=== PATIENT | male | born 1980 | race Caucasian/White ===

== ENCOUNTER 2022-01-04 09:24 | Outpatient (CLI) | payer OTHER, SELFPAY ==
--- NOTE | 2022-01-14 15:05 | DI.RAD_ITS ---
Exam(s) XR STANDING ALIGNMENT EXAM: XR STANDING ALIGNMENT CLINICAL HISTORY: left knee pain. TECHNIQUE: 2D digital imaging was performed. Eight images were obtained. COMPARISON: No exams were available for comparison FINDINGS: The exam is suboptimal for evaluation of the distal tibia, fibula and ankle. BONES: No acute fracture is present. No bony destructive lesion is seen. There are marked degenerativ e changes seen in the left knee with joint space narrowing and periarticular spurring. The right kne e is well maintained. The right lower extremity measures 88 cm. The left lower extremity measures 8 7 cm. SOFT TISSUE: Normal. IMPRESSION: Marked degenerative changes of the left knee. DATA REPOSITORY: RADIATION DOSE DELIVERED:
== END 2022-01-04 09:25 | disposition home or self-care (01) ==
LOC: DIORS 09:24
PROVIDERS: PCP Neuromusculoskeletal Medicine & OMM; Referring Provider Neuromusculoskeletal Medicine & OMM; Visit Provider Physician Assistant
DX: M25.562 Pain in left knee
CPT/HCPCS: 77073

== ENCOUNTER 2022-01-22 01:30 | Outpatient (CLI) | payer OTHER, SELFPAY ==
[2022-01-22 10:00] LABS: HCT 46.6 % (40.0-50.0); HGB 16.7 g/dL (13.5-17.5); MCH 30.6 pg (27.0-33.0); MCHC 35.8 % (32.0-36.0); MCV 86 fL (80-95); MPV 11.4 fL (8.0-11.0); Platelet Count 186 10^3/uL (130-400); RBC 5.45 10^6/uL (4.36-5.78); RDW-SD 37.1 fL; WBC 7.45 10^3/uL (4.4-10.8)
[2022-01-22 10:28] LABS: Anion Gap 12.3 mmol/L (3-11); BUN 15 mg/dL (7-18); CO2 22.7 mmol/L (21.0-32.0); CREATININE 1.1 mg/dL (0.70-1.30); Calcium 9.8 mg/dL (8.5-10.1); Chloride 104 mmol/L (98-107); Glucose 97 mg/dL (74-106); Potassium 4.2 mmol/L (3.5-5.1); Sodium 139 mmol/L (136-145)
== END 2022-01-22 01:31 | disposition home or self-care (01) ==
LOC: LBO 01:30
PROVIDERS: PCP Neuromusculoskeletal Medicine & OMM; Visit Provider Student in an Organized Health Care Education/Training Program
DX: M25.562 Pain in left knee (principal); M17.12 Unilateral primary osteoarthritis, left knee; Z01.818 Encounter for other preprocedural examination; Z01.812 Encounter for preprocedural laboratory examination
CPT/HCPCS: 36415; 80048; 85027

== ENCOUNTER 2022-01-22 01:52 | Outpatient (CLI) | payer OTHER, SELFPAY ==
--- OUTSIDE RECORDS SUMMARY | 2022-01-22 01:54 | XMS_ITS ---
:1980 Author Care Team Providers Name Role Phone TARA LAMA DO Primary Care Provider [phone] Allergies Code Code System Name Reaction Severity Status Onset NKDA ? Medications Name Status Start Date Stop Date ? ? Bactrim DS 800 mg-160 mg tablet Completed ? 11/04/2021 Take 1 tablet every 12 hours by oral route for 7 days. cannabidiol (CBD) oral oil Completed ? 11/05 1000 mg BID cephalexin 500 mg tablet Completed ? 022 Take 1 tablet every 6 hours by oral route for 7 days. cyclobenzaprine 10 mg tablet Completed 08/13/2014 1 (one) Tablet: qhs - at bedtime prn Fish Oil Completed ? 11/05/2021 hydrocodone 5 mg-acetaminophen 300 mg tablet Completed 08/20/2014 1 (one) Tablet: qhs - at bedtime prn pain hydrocodone 5 mg-acetaminophen 325 mg tablet Completed 05/201703/09/2017 1 (one) Tablet: every four to six hours as needed hydrocodone 5 mg-acetaminophen 500 mg tablet Completed 01/201311/01/2012 1 Tablet: qhs - at bedtime ibuprofen 800 mg tablet Completed 09/02/2010 09/03/19 12 1 (one) Tablet: every 8 hours as needed indomethacin 50 mg capsule Active ? Not a vailable TAKE ONE CAPSULE BY MOUTH THREE TIMES A DAY NEEDED WITH FOOD FOR GOUT FOR 15 DAYS Keflex 500 mg capsule Completed 09/03/2016 06/30/2017 1 (one) Capsule Capsule: three times daily Klonopin 0.5 mg tablet Completed 10/08/2011 2 1 (one) Tablet: prn losartan 50 mg tablet Completed 09/03/2011 10/04/2012 1 Tablet: daily multivitamin Completed ? 11/05/2021 oxycodone 10 mg tablet Completed ? 2 Take 1 tablet every 4 hours by oral route as needed. paroxetine 20 mg tablet Completed 09/11/2010 09/11/19 11 1 (one) Tablet: daily prednisone 10 mg tablet Completed 11/10/2011 11/15/19 12 1 Tablet: See comments sertraline 100 mg tablet Completed ? 022 TAKE ONE TABLET BY MOUTH EVERY DAY sulindac 200 mg tablet Completed 10/04/2012 3 1 Tablet: bid - twice daily topiramate 50 mg tablet Completed ? 11/06/19 22 TAKE ONE TABLET BY MOUTH AT BEDTIME tramadol 50 mg tablet Active ? Not availa ble Take 1 tablet every 8 hours by oral route for 7 days. Vitamin D Active ? Not available 5000 IU Zoloft 50 mg tablet Completed 11/10/2011 11/10/2011 1 Tablet: daily Problems Name Status Onset Date Source ? Pain in Elbow Active 05/14/2019 ? Secondary Polycythemia Active 02/11/2020 ? Snoring Active 02/11/2020 ? Gout Active ? History Panic Disorder without Agoraphobia Active ? History Migraine Active ? History Hypertensive Disorder Active ? History Inguinal Hernia without Obstruction and without Active ? History Gangrene Inguinal Hernia with Obstruction but No Gangrene Active ? History Ventral Incisional Hernia of Anterior Abdominal Wall Active ? History without Obstruction and without Gangrene Backache Active ? History Fracture of Bone Active ? History Sprain Thumb, Metacarpophalangeal Joint Nonspecific Active ? History Laceration of Finger Active ? History Dietary Management Surveillance Active ? History Procedure by Method Unknown ? History Pain in Left Knee Active ? History SNOMED CT Concept Unknown ? History Procedures Date Name Performed by ? 08/29/2000 Appendectomy Information not avai lable ? Hernia Repair Information not avai lable Notes: 200605/14/2019 XR, Elbow, 3 or More View [facility] Radiology (Internal) [address], [place] [id number] (Work Place) 05/14/2019 XR, Elbow, 3 or More View [facility] Radiology (Internal) [address], [place] [id number] (Work Place) Results Lab Results Date Name Specimen Result Interpretation Description Value Range Status Address ? 02/11/2020 CBC W/ Auto BLD ? Wbc 5.2 10*3/uL 5.0-10.0 F inal [place] Diff 10*3/uL [facility] (Internal) : [address] ? ? BLD ? Rbc 5.42 10*6/uL 4.60-6.00 Final N orth 10*6/uL [facility] (Internal) : [address] , [place] ? ? BLD ? Hgb 16.8 g/dL 14.0-18.0 Final Nort h g/dL [facility] (Internal) : [address] ? ? BLD ? Hct 48.0 % 41.0-51.0 Final [facility] (Internal) : [address] ? ? BLD ? Mcv 88.6 fL 80.0-96.0 Final [facility] (Internal) : [address] [place] ? ? BLD ? Mch 31.0 pg 26.0-32.0 Final [facility] (Internal) : [address] ? ? BLD ? Mchc 35.0 g/dL 31.0-35.0 Final Nort h g/dL [facility] (Internal) : [address] ? ? BLD ? Rdw 11.9 % 11.5-14.5 Final [facility] (Internal) : [address] ? ? BLD ? Plt 182 10*3/uL 130-450 Final Nort h 10*3/uL [facility] (Internal) : [address] ? ? BLD ? Anc 3.23 10*3/uL ? Final Nort h [facility] (Internal) : [address] ? ? BLD ? Nlr 2.31 0.00-3.20 Final [facility] (Internal) : [address] ? ? BLD ? Neutro 61.9 % 40.0-75.0 Final [facility] (Internal) : [address] ? ? BLD ? Lymph 26.9 % 20.0-50.0 Final [facility] (Internal) : [address] ? ? BLD ? [place] 7.3 % 2.0-10.0 Final North [facility] (Internal) : [address] ? ? BLD ? Eos 2.9 % 1.0-6.0 % Final [facility] (Internal) : [address] ? ? BLD ? Baso 0.6 % 0.0-1.0 % Final [facility] (Internal) : [address] ? ? BLD ? Ig 0.4 % 0.0-0.9 % Final [facility] (Internal) : [address] 02/11/2020 Iron, Serum SERUM ? Iron 56 ug/dL 49-181 Final North ug/dL [facility] (Internal) : [address] 02/11/2020 CMP, Serum S ? g/r 89 mg/dL 74-106 Final North or Plasma mg/dL [facility] (Internal) : [address] ? ? S ? Bun 14 mg/dL 9-20 Final North mg/dL [facility] (Internal) : [address] ? ? S ? Crea 0.80 mg/dL 0.66-1.25 Final Nor th mg/dL [facility] (Internal) : [address] ? ? S ? Ca 9.5 mg/dL 8.4-10.2 Final [place] mg/dL [facility] (Internal) : [address] ? ? S ? Na 139 mmol/L 137-145 Final North mmol/L [facility] (Internal) : [address] ? ? S ? K 3.9 mmol/L 3.5-5.1 Final [place] mmol/L [facility] (Internal) : [address] ? ? S ? Cl 102 mmol/L 98-107 Final North mmol/L [facility] (Internal) : [address] ? ? S ? Tco2 23.0 mmol/L 22.0-30.0 Final No rth mmol/L [facility] (Internal) : [address] ? ? S ? Tp 7.8 g/dL 6.3-8.2 Final [place] g/dL [facility] (Internal) : [address] ? ? S ? Alb 4.5 g/dL 3.5-5.0 Final [place] g/dL [facility] L [facility] (Internal) : [address] ? ? S ? Tbil 0.7 mg/dL 0.2-1.3 Final [place] mg/dL [facility] (Internal) : [address] ? ? S ? Alp 55 U/L 50-136 Final [place] U/L [facility] (Internal) : [address] ? ? S ? Alt 22 U/L 21-72 U/L Final [place] (Sgpt) [facility] (Internal) : [address] ? ? S ? Ast 32 U/L 17-59 U/L Final [place] (Sgot) [facility] (Internal) : [address] [facility] [place] 02/11/2020 Uric Acid, S ? Urca 6.9 mg/dL 3.5-8.5 Final [place] Serum or mg/dL [facility] (Internal) : [address] [facility] [place] 02/11/2020 CRP, High S High Rcrp 0.89 mg/dL 0.10-0.30 Fin al [place] Sensitivity, mg/dL Coun try Serum or Hospital Lab Plasma (Internal) : [address] [facility] [place] 02/11/2020 Ferritin, S ? Ferr 201 NG/mL 18-464 Final [place] Serum or NG/mL [facility] (Internal) : [address] [facility] [place] 02/11/2020 ESR BLD ? Esr 3 mm/h 0-20 mm/h Final Nor th (Erythrocyte Coun try Sedimentatio Hosp ital Lab n Rate), (Interna l): Blood [address] [facility] [place] 02/11/2020 Venipuncture Blood ? Location Left ? ? P_nc Primary venous Antecubital [facility] [place]: [address], [place] ? ? Blood ? Needle 23g ? ? P_nc Prim yeny venous Butterfly [facility] [place]: [address], [place] ? ? Blood ? Number of 2 ? ? P_nc P rimary venous Attempts Care [place]: [address], [place] ? ? Blood ? Successfu Yes ? ? P_nc P rimary venous l Care [place]: [address], [place] ? ? Blood ? Dressing Pressure ? ? P_nc Primary venous Band-aid Care Applied [place]: [address], [place] ? ? Blood ? Initials rs/hj ? ? P_nc Pr imary venous Care [place]: [address], [place] Past Encounters 12/09/2021 Pain of Left Knee Joint; Overweight Tara Lama, DO: [address] [facility] [place] [address], Ph. 11/05/2021 Pain of Left Knee Joint; Overweight Tara Lama, DO: [address] [facility], [place] [address], Ph. 06/24/2021 JUMA GandaraC: [address] [place] [address], [facility] [address], [place] [address], Ph. 06/22/2021 Laceration of Hand Norma Will PA-C: [address] [place] [address], [facility] [address], [place] [address], Ph. Social History Tobacco Smoking Status Never Smoker Vaccine List Vaccine Type COVID-19 vaccine, vector-nr, rS-Ad26, PF , 0.5 mL ([facility] [employer]) 03/30/2021 Tdap 06/30/2017?0.5 mL Plan of Care Reminders Provider Appointments None recorded. ? ? Lab None recorded. ? ? Referral None recorded. ? ? Procedures None recorded. ? ? Surgeries None recorded. ? ? Imaging None recorded. ? ? Vitals 12/09/2021 01:20PM Follow Up 20 Height Weight BMI Blood Pressure 172.72 cm 137.89 kg 46.2 kg/m2 132/78 mm[Hg] 11/05/2021 10:40AM Any 20 Height Weight BMI Blood Pressure 172.72 cm 145.6 kg 48.8 kg/m2 148/74 mm[Hg] 06/22/2021 10:15AM Acute 15 Weight 135.49 kg 02/11/2020 11:20AM Acute 20 Height Weight BMI Blood Pressure 172.72 cm 131.54 kg 44.1 kg/m2 142/70 mm[Hg] 05/14/2019 12:40PM Acute 20 Height Weight BMI Blood Pressure 172.72 cm 138.35 kg 46.4 kg/m2 160/78 mm[Hg] 08/17/2016 Height Weight Blood Pressure 175.26 cm 133.81 kg 132/84 mm[Hg] 09/16/2014 Weight Blood Pressure 102.51 kg 124/76 mm[Hg] 08/13/2014 Weight Blood Pressure 102.51 kg 142/94 mm[Hg] 01/02/2013 Height Weight Blood Pressure 175.26 cm 83.91 kg 124/62 mm[Hg] 12/26/2012 Height Weight Blood Pressure 175.26 cm 83.91 kg 120/67 mm[Hg] 12/19/2012 Height Weight Blood Pressure 175.26 cm 83.91 kg 121/68 mm[Hg] 11/21/2012 Height Weight Blood Pressure 175.26 cm 83.91 kg 124/78 mm[Hg] 10/10/2012 Height Weight Blood Pressure 175.26 cm 83.91 kg 120/80 mm[Hg] 10/04/2012 Weight Blood Pressure 90.26 kg 130/80 mm[Hg] 05/08/2012 Height Weight Blood Pressure 172.72 cm 84.37 kg 118/60 mm[Hg] 01/07/2012 Weight Blood Pressure 92.53 kg 122/80 mm[Hg] 11/18/2011 Weight Blood Pressure 108.41 kg 116/60 mm[Hg] 11/10/2011 Height Weight Blood Pressure 172.72 cm 117.48 kg 120/64 mm[Hg] 11/03/2011 Height Weight Blood Pressure 172.72 cm 117.48 kg 118/60 mm[Hg] 10/08/2011 Height Weight Blood Pressure 172.72 cm 125.65 kg 130/68 mm[Hg] 09/22/2011 Height Weight Blood Pressure 172.72 cm 131.09 kg 140/80 mm[Hg] 09/03/2011 Height Weight Blood Pressure 172.72 cm 136.53 kg 160/90 mm[Hg] 09/11/2010 Blood Pressure 130/80 mm[Hg] 01/15/2009 Weight Blood Pressure 136.98 kg 130/80 mm[Hg] 06/01/2007 Weight Blood Pressure 141.07 kg 158/90 mm[Hg]
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
[2022-01-22 11:01] LABS: Source Nasal/Nares
[2022-01-22 14:42] LABS: COVID-19 PCR Negative (Negative)
== END 2022-01-22 01:53 | disposition home or self-care (01) ==
LOC: LBO 01:53
PROVIDERS: PCP Neuromusculoskeletal Medicine & OMM; Visit Provider Student in an Organized Health Care Education/Training Program
DX: Z20.822 Contact with and (suspected) exposure to COVID-19 (principal); Z01.818 Encounter for other preprocedural examination
CPT/HCPCS: 87635

== ENCOUNTER 2022-02-01 03:23 | Outpatient (CLI) | payer OTHER, SELFPAY ==
[2022-02-01 13:47] LABS: Source Nasal/Nares
[2022-02-01 21:01] LABS: COVID-19 PCR Negative (Negative)
== END 2022-02-01 03:24 | disposition home or self-care (01) ==
PROVIDERS: PCP Neuromusculoskeletal Medicine & OMM; Visit Provider Student in an Organized Health Care Education/Training Program
DX: Z20.822 Contact with and (suspected) exposure to COVID-19 (principal); Z01.818 Encounter for other preprocedural examination
CPT/HCPCS: 87635

== ENCOUNTER 2022-02-02 07:06 | Day surgery (SDC) | payer OTHER, SELFPAY ==
[2022-02-02] VITALS (10 sets, daily range): BP systolic 139–154; BP diastolic 79–98; PULSE 66–95; RESP 11–24; TEMP 36–37.1; O2SAT 96–100; BMI 45.3
--- NOTE | 2022-02-02 06:20 | W.ANESPRE ---
General Info Date of Service Date Performed: 02/02/22 Height: 5 ft 8 in Weight: 135.171 kg Body Mass Index (BMI): 45.3 Surgical Procedure: Operation Date: 02/02/22 09:55 Proposed Procedure Side Surgeon p Knee Total Arthroplasty Cementless CR Left Harrison Boss MD Meds Allergies and Home Medications Allergies Allergy/AdvReac Type Severity Reaction Status Date / Time No Known Allergies Allergy Verified 02/02/22 07:32 Home Medication Medication Instructions Recorded cholecalciferol (vitamin D3) 125 125 mcg PO DAILY 11/10/21 mcg (5,000 unit) capsule celecoxib 200 mg capsule (Celebrex) 200 mg PO BID PRN pain #60 caps 01/04/22 acetaminophen 500 mg capsule 1,000 mg PO Q8H PRN PRN #90 caps 02/02/22 acetaminophen 500 mg tablet 1,000 mg 02/02/22 aspirin 81 mg tablet,delayed 81 mg PO BID #60 tabs 02/02/22 release celecoxib 200 mg capsule (Celebrex) 200 mg PO BID #60 caps 02/02/22 gabapentin 300 mg capsule 300 mg PO QHS #14 caps 02/02/22 oxycodone 5 mg tablet 5 mg PO Q4H PRN #18 tabs 02/02/22 pantoprazole 40 mg tablet,delayed 40 mg PO DAILY #30 tabs 02/02/22 release (Protonix) Current Visit Medications: Current Medications Generic Name Dose Route Start Last Admin Trade Name Freq PRN Reason Stop Dose Admin Acetaminophen 1,000 mg 02/02/22 06:00 Acetaminophen 500 Mg Tab PO 02/02/22 16:00 PREOP CHOCO Celecoxib 400 mg 02/02/22 06:00 Celecoxib 200 Mg Cap PO 02/02/22 16:00 PREOP CHOCO Gabapentin 300 mg 02/02/22 06:00 Gabapentin 300 Mg Cap PO 02/02/22 16:00 PREOP CHOCO Tranexamic Acid 1,000 mg/ 60 mls @ 360 mls/hr 02/02/22 06:00 Sodium Chloride IVPB 02/02/22 16:00 PREOP CHOCO Tranexamic Acid 1,000 mg/ 60 mls @ 360 mls/hr 02/02/22 06:00 Sodium Chloride IVPB 02/02/22 16:00 DIRECTED CHOCO Ringer's Solution 1,000 mls @ 80 mls/hr 02/02/22 06:00 IV 02/25/22 23:59 INFUSION CHOCO Cefazolin Sodium 3 gm in 100 mls @ 200 mls/hr 02/02/22 06:00 Ancef Premix IVPB 02/02/22 16:00 PREOP CHOCO IV Miscellaneous Supplies 1 each 02/02/22 06:00 Iv Access IV 02/25/22 23:59 DIRECTED CHOCO Sodium Chloride 0 ml 02/02/22 06:00 Normal Saline Flush 10 Ml Syr IV 02/25/22 23:59 PRN PRN Sodium Chloride 0 ml 02/02/22 06:00 Normal Saline 10 Ml Vial IJ 02/25/22 23:59 DIRECTED PRN Sterile Water 0 ml 02/02/22 06:00 Water,Injection,Sterile 10 Ml Vial IJ 02/25/22 23:59 DIRECTED PRN PFSH Active Problems Active Problems: Problem Status Onset Code Gout M10.9 Hypertensive disorder I10 Left knee DJD M17.12 Medical History Medical History Panic disorder without agoraphobia Secondary polycythemia Pt. unsure of this Unilateral inguinal hernia, without obstruction or gangrene, not specified as recurrent Medical History Comments:: Pt. states he has anxiety provoked diarrhea. Surgical History Surgical History (Updated 02/02/22 @ 07:32 by Samantha Yeager RN) History of urinary tract surgery Hx of appendectomy Hx of inguinal hernia repair Hx of knee surgery x3 Tobacco Smoking/Tobacco Use Status: Former Tobacco Use Smokeless tobacco user: chewing tobacco Alcohol Alcohol Intake: current Alcohol intake frequency: a few times a week Alcohol type: hard liquor Substance Use Substance use: Daily Substance use type: marijuana Vital Signs and Lab Results Lab Results Blood Type / Crossmatch: No Data to Display Complete Blood Count: White Blood Count 7.45 10^3/uL (4.4-10.8) 01/22/22 09:24 Red Blood Count 5.45 10^6/uL (4.36-5.78) 01/22/22 09:24 Hemoglobin 16.7 g/dL (13.5-17.5) 01/22/22 09:24 Hematocrit 46.6 % (40.0-50.0) 01/22/22 09:24 Platelet Count 186 10^3/uL (130-400) 01/22/22 09:24 Complete Metabolic Panel: Sodium Level 139 mmol/L (136-145) 01/22/22 09:23 Potassium Level 4.2 mmol/L (3.5-5.1) 01/22/22 09:23 Chloride Level 104 mmol/L (98-107) 01/22/22 09:23 Carbon Dioxide Level 22.7 mmol/L (21.0-32.0) 01/22/22 09:23 Blood Urea Nitrogen 15 mg/dL (7-18) 01/22/22 09:23 Creatinine 1.1 mg/dL (0.70-1.30) 01/22/22 09:23 Estimated GFR/1.73 m2 >= 60.00 (mL/min/1.73m2) 01/22/22 09:23 Calcium Level 9.8 mg/dL (8.5-10.1) 01/22/22 09:23 Glucose Level 97 mg/dL (74-106) 01/22/22 09:23 Liver Function Panel: No Data to Display Coagulation Panel: No Data to Display Cardiac Panel: No Data to Display Arterial Blood Gas: No Data to Display Venous Blood Gas: No Data to Display Pancreas Panel: No Data to Display Thyroid Panel: No Data to Display Infectious Disease: Coronavirus (COVID-19)(PCR) Negative (Negative) 02/01/22 09:11 Coronavirus 2019 Source Nasal/Nares 02/01/22 09:11 Blood Cultures: No Data to Display Toxicology Panel: No Data to Display Anesthesia Assessment and Plan Anesthesia History Personal History: No History of Anesthesia Complications Family History: No Family History of Anesthesia Complications Exercise Tolerance Exercise Tolerance: Metabolic Equivalents>4 Cardiac & Pulmonary Exam Cardiac Exam: Normal S1/S2 Heart Sounds Pulmonary Exam: Clear Bilateral Breath Sounds Implantable Cardiac Device Does patient have a Pacemaker or an ICD?: No Airway Exam Known Difficult Airway: No Mallampati Class: 2 Mouth Opening: Normal (> 3cm) Thyromental Distance: Greater than 3 cm Neck Range of Motion: Full ROM Neck Circumference: Normal Teeth Condition: Normal Dentition ASA Classification ASA Score: ASA 3 Emergency Case?: No NPO Status NPO Status: NPO Clears >2 hours, Solids >8 hours Anesthesia Plan Resuscitation Status: Full Code Anesthesia Technique: Spinal Anesthesia Airway Planned: Natural Airway Pain Management: Surgeon and patient request nerve block Monitors Used: Standard Monitors Preoperative Comments:: 41 yo male for left knee arthroplasty. Sig PMHx: former tobacco, HTN (not on medication), occ EtOH, daily cannabis.
--- NOTE | 2022-02-02 07:45 | PDOC.DSDIS_ITS ---
Discharge Plan Disposition Patient Disposition: HOME Condition: Stable Discharge Details Reason For Visit: Left TKA Attending Provider: Harrison Boss Primary Care Provider: Sharif Cleveland [place] Meds and New Rx's Prescriptions: New acetaminophen 500 mg capsule 1,000 mg PO Q8H PRN PRNQty: 90 0RF aspirin 81 mg tablet,delayed release (DR/EC) 81 mg PO BID Qty: 60 0RF celecoxib [Celebrex] 200 mg capsule 200 mg PO BID Qty: 60 0RF pantoprazole [Protonix] 40 mg tablet,delayed release (DR/EC) 40 mg PO DAILY Qty: 30 0RF gabapentin 300 mg capsule 300 mg PO QHS Qty: 14 0RF oxycodone 5 mg tablet 5 mg PO Q4H PRNQty: 18 0RF ondansetron 4 mg tablet,disintegrating 4 mg PO Q6H PRNQty: 10 0RF Continued celecoxib [Celebrex] 200 mg capsule 200 mg PO BID PRN (Reason: pain) Qty: 60 1RF Rx Instructions: Take one tablet twice daily cholecalciferol (vitamin D3) 125 mcg (5,000 unit) capsule 125 mcg PO DAILY acetaminophen 500 mg Tablet 1,000 mg Discontinued tramadol 50 mg tablet 50 mg PO BID PRN indomethacin 50 mg capsule 50 mg PO TID PRN Rx Instructions: administer with food or milk Discharge Instructions Additional Instructions: Total Knee Discharge Instructions Activity: The most important activity is to walk. You should try to take short walks a few times a day. It is important that when resting you work on keeping the knee straight. Avoid putting a pillow behind the knee as this will encourage flexion. Work on range of motion exercises as provided by Physical Therapy. If you have the [employer] bike coming, this will be your primary tool for exercise after the knee replacement. You should use it and follow the directions for the knee. Utilize the other exercises sparingly based on your symptoms. - Start outpatient physical therapy within 2 weeks. - You should wear the EUGENE hose on both legs for 2 weeks. You may remove these at night. You may also use any compression sock in place of the EUGENE hose. - Utilize [employer] to review exercises, see videos on exercises and obtain basic information pertaining to your surgery and your recovery. Dressing: Remove the Jake wrap by 2 days after your surgery and put on the EUGENE stocking given to you from the hospital. Keep the surgical dressing (underneath the JAKE wrap) in place for at least one week. After the first week it may be removed and replaced with light gauze and tape or nothing. The wound and dressing may get wet after 3 days but avoid soaking the dressing or otherwise it will need to be changed. Many people prefer covering the dressing with cling wrap (saran wrap) to minimize it from getting soaked. If it gets wet, just pat dry. If it starts to peel off then it will need to be changed. Medications: - You should take Tylenol and anti-inflammatory Celebrex as your primary pain control medications. If the Celebrex is too expensive or not covered, please call the office for another alternative (Advil/Ibuprofen or Naproxen/Aleve) - You have been prescribed a stronger pain medication Oxycodone for breakthrough pain, take as needed as prescribed. - You have also been prescribed a stomach acid reduction agent Pantoprozole to help reduce stomach acid and reflux. - You have been prescribed Gabapentin to take at night for restlessness and nerve pain. - You will be taking Aspirin 81mg twice a day for DVT prevention unless instructed otherwise. - If you have constipation you should take Colace or Miralax (both [id number]). It takes most people 3-4 days to have a bowel movement. Follow-up: 2 weeks If you have any acute concerns or questions, please do not hesitate to contact the office at [phone]. You may contact Dr. Boss with any questions after hours through the hospital at [phone] or on his cell phone at [phone]. Stand Alone Forms: Anesthesia Discharge Inst., Mireya Kingsley ([facility]) Referrals: Harrison Boss MD [ [facility] STAFF PHYSICIAN] - Equipment/Supplies: Walker Activity:: Activity as Tolerated Remove Dressings/Wound Care:: Do Not Remove Shower/Bathe:: 72 hours Diet:: As Tolerated Discharge Orders Discharge Orders: Discharge Order (Routine); Ordered 02/02/22 Ordered By: Nighat Dick DS: Diagnosis Discharge Diagnosis (1) Left knee DJD: Status: Chronic
[2022-02-02] MEDS: Gabapentin 300 MG CAP PO (07:46)
[2022-02-02] MEDS: Acetaminophen 500 MG TAB 1000 MG PO (07:46)
[2022-02-02] MEDS: Celecoxib 200 MG CAP 400 MG PO (07:47)
[2022-02-02] MEDS: Lactated Ringers 1,000 ML 80 ML IV (07:59)
--- NOTE | 2022-02-02 09:30 | W.ANESNERVE ---
Nerve Block Single Injection Procedure Date and Time Date Performed: 02/02/22 Procedure Start: 08:10 Location Where Procedure Performed Procedure Location: Day Surgery Unit Reason Performed: Postoperative Analgesia Requesting Provider: Harrison Boss Timeout Performed Timeout Performed: Yes Monitoring Used ECG, Blood Pressure, SpO2 and See EMR for corresponding vital signs Sterility Sterility: Hand Hygiene, Surgical Cap, Surgical Mask, Sterile Gloves and Chlorhexidine Sedation Given During Procedure Sedation Given (Indicate Dose Given): Versed IV Dose:: 2mg Patient Mental Status Patient Mental Status: Awake Nerve Block 1st Nerve Block: Laterality: Left Block Type: Adductor Canal Needle / Catheter Used: 100mm SonoPlex II Local Anesthetic Bolus (Indicate Dose Given): Lidocaine used for local infiltration of skin, Injected in 3-5ml increments after negative blood aspiration and Bupivacaine 0.25% Dose:: 10mL Additives (Indicate Dose Given): None Ultrasound: Sterile probe cover and gel used Ultrasound Image Saved?: Yes Nerve Stimulator: Not Used Paresthesia: None Procedure Tolerated: No Complications Procedure Outcome: Successful Performed By: Jil Urena
[2022-02-02] MEDS: oxyCODONE 5 MG TAB PO (12:09)
--- NOTE | 2022-02-02 12:46 | IN_ITS ---
Date of service: 02/02/22 Time of Service: 12:46 PT Notes Visit Reasons: Left TKA Physical Therapy Day Surgery Initial Evaluation Date: 03/17/2022 Referring Doctor: DIONY Alfaro PT Orders: PT CONSULT: S/P Ortho surgery Precautions: WBAT on left LE with AD. Patient Profile/Admitting Diagnosis: Adelfo is a 41-year-old male with degenerative joint disease of the left knee and status post left total knee arthroplasty on postoperative day 0. PMHX: Medical History? Panic disorder without agoraphobia Secondary polycythemia Unilateral inguinal hernia, without obstruction or gangrene, not specified as recurrent Social History/Home Situation: Lives with in a private home with 5 steps to enter with rails on both sides. Independent with all aspects of renal prior to surgery. Equipment Owned/DME: [facility] Subjective: Agreeable to PT consult. Reports little pain in the left knee at 1-2/10. Amazed at how much he can move left knee with pain. Objective: General Observation: Jake wraps to left LE. Cryocuff to left knee. TEDS to right leg. Mental Status: Alert and oriented x 4 Pain: 1-2/10 in left knee ROM: Right Lower Extremity: Hip flexion WFL. Hip abduction WFL. Knee flexion WFL. Ankle dorsiflexion WFL. Ankle plantarflexion WFL. Left Lower Extremity: Hip flexion WFL. Hip abduction WFL. Knee flexion 30 degrees to 100 degrees. Knee extension -30 degrees. Ankle dorsiflexion WFL. Ankle plantarflexion WFL. Strength: Right Lower Extremity: Hip flexors 5/5. Hip abductors 5/5. Knee flexors 5/5. Knee extensors 5/5. Ankle dorsiflexors 5/5. Ankle plantarflexors 5/5. Left Lower Extremity:Hip flexors 5/5. Hip abductors 5/5. Knee flexors 3-/5. Knee extensors 3-/5. Ankle dorsiflexors 5/5. Ankle plantarflexors 5/5. Sensation: Intact as to pain and light pressure in bilateral lower extremities Bed Mobility/Transfers: Supine to sit standby assist Sit to stand standby assist Stand to sit standby assist Bed to chair standby assist Gait: Instructed patient on level surface ambulation of up to 150 feet using front- wheeled walker with step through gait pattern requiring standby assist only with no increased report in pain in the left knee. Stairs: Up and down 6 x 4 inch steps and 4 x 6 inch steps while holding onto bilateral rails with step to gait pattern requiring minimal to moderate verbal cues for safe and correct technique. Standby assist provided, Balance: Static Sitting: Normal Dynamic Sitting: Normal Static Standing: Fair Dynamic Standing: Fair Special Tests: Mobility Limitations Standardized Measure [facility] AM-PAC 6 clicks Basic Mobility Inpatient Short Form: Raw Score: 24 CMS Score: 0% deficit Informed Consent/Education: Patient instructed in purpose of PT consult. Education and training on initial set of exercises that can be done at home have been completed with patient and with reference to the [employer]. THERA EX: I Instruction and training on straight leg raise x 10, seated hip flexion x5 , LAQ x 5, ankle DF PF x 5, gluteal sets held for 5 seconds x 5 reps, and quadriceps sets held for 5 seconds x 5 reps. Assessment: Adelfo requires the use of a front wheeled walker for all mobility ADL performance to maximize independence and reduce fall risk. Patient presents with clinical signs and symptoms consistent with current/admitting diagnoses that have resulted to mobility limitations, gait instability, generalized weakness, and impairment of motor control as demonstrated by the following impairment level findings: 1. Decreased strength to left knee major muscle groups 2. Impaired standing balance 3. Limitation of joint range of motion in left knee Impairments are contributing to the following functional limitations: 1. Inability to safely ambulate without assistive device 2. Increase completion time for mobility ADL performance 3. Increased fall risk Patient is assessed as a [id number] moderate complexity based on the following: History: 41-year-old male with impairment level findings, functional limitations, and past medical history as indicated above Examination: Demonstrable impairment in strength, balance, and mobility level with underlying impairments and functional limitations as documented above Presentation: [employer] moderate complexity Goals: N/A. PT evaluation and 1-2 treatment sessions only for functional mobility training using recommended AD and for HEP instruction. Plan of Care/Treatment Plan: N/A. PT evaluation and 1-2 treatment session only for functional mobility training using recommended AD and for HEP instruction. DISCHARGE RECOMMENDATIONS: Home when medically cleared by orthopedic surgeon. Patient will benefit from outpatient physical therapy service in order to regain independent community ambulation and ADL performance without an assistive device. TREATMENT CODE/TIME: 40727 x 20 minutes, [id number] x 23 minutes beginning at 12:46 PM. Thank you for the opportunity to participate in the care of this patient. Loni Prado PT, DPT, CLT [facility] [place], [place]
--- NOTE | 2022-02-02 14:19 | ROE_ITS ---
Date of service: 02/02/22 Time of Service: 10:20 Operative Note Operative Note DATE OF PROCEDURE: 02/02/22 PRE-OP DIAGNOSIS: Left Knee Post-Traumatic Osteoarthritis POST-OP DIAGNOSIS: same PROCEDURE: Left Total Knee Replacement SURGEON: Harrison Boss CORE JAVA ENGINEER: Nighat Dick ANESTHESIA TYPE: Spinal Refer to Anesthesia Record ESTIMATED BLOOD LOSS: 500 PATHOLOGY: none sent TOURNIQUET TIME: 0 COMPLICATIONS: None Patient was transported to: PACU Patient's condition: stable Implants: 1. Depuy Attune Cementless Cruciate Retaining Femoral Component, Size 7 2. Depuy Attune Cementless Rotating Platform Tibial Component, Size 7 3. Depuy Attune 7x7 CR/RP Poly 4. Depuy Attune Patellar Component, Size 38 Indications: I have seen Adelfo in clinic for symptoms of knee arthritis, confirmed with radiographic findings. He has exhausted nonoperative methods and was having significant limitations in daily function and desired better function and less pain. I discussed the technical details of a knee replacement. I explained the risks of the procedure to include, but not limited to, bleeding, infection, pain, stiffness, fracture, damage to nerves and vessels, damage to muscles and tendons, loosening, need for repeat procedure, blood clot and cardiopulmonary demise. Despite these risks, Adelfo elected to proceed. Findings: There was significant signs of arthritis throughout the knee involving all 3 compartments. There were large osteophytes throughout. Procedure Description: Adelfo was greeted in the preoperative holding area where the correct side was identified and marked. The consent was reviewed with the patient and signed. The history and physical was updated. All questions were answered. Preoperative medications were administered: Acetaminophen 1000mg, Celebrex 400mg, and Gabapentin 300mg. An adductor canal block was then administered by the anesthesia team in the PACU. Adelfo was taken back to the operating room. A spinal anesthestic was attempted but unsuccessful so he was converted to a general anesthetic. The patient was placed into the supine position on the operating room table. A nonsterile tourniquet was placed high onto the leg but only used for cementing. Posts were placed for positioning during the procedure. All bony prominences were well padded. Prophylactic antibiotics in the form of Cefazolin were administered. 1g of Tranxemic Acid was given intravenously within 30 minutes of incision. The left leg was then prepped with Chloraprep and draped in a standard fashion with impervious stockinette. A second prep with Chloraprep was performed prior to application of Iodine impregnated skin protection. A timeout to confirm correct identity, side and site, procedure, allergies, anesthesia, and medical concerns was performed. With the knee in some flexion, a midline incision was made overlying the knee. Full thickness skin flaps were raised once the extensor mechanism was enc ountered. These were raised medially and laterally. Any bleeding was controlled with electrocautery. Once the extensor mechanism was fully exposed, a medial parapatellar arthrotomy was performed in a flexed position. All bleeding from the arthrotomy and the geniculate arteries was coagulated. A medial subperiosteal peel was performed with electrocautery to the midcoronal plane. Due to the significant varus deformity the entire medial tibial plateau was exposed. The fat pad was removed while keeping the patellar tendon protected. The anterior distal femur synovium was removed for later visualization. The ACL and PCL were resected and the anterior horn of the lateral meniscus was transected. The knee was then flexed with the patella everted. Large osteophytes from the tibia were removed. Large osteophytes from the femur were removed. Using a step drill, and based on preoperative templating, the femoral canal was entered. This was done with a step drill without any difficulty. The intramedullary distal femoral cut guide was inserted, set to a 5 degree valgus cut and 9mm cut thickness. The distal femoral cut guide was then held in position and pinned. With the soft tissues protected, the distal cut was performed. This was passed over a few times to ensure a planar cut. I then turned attention to the tibia. The extramedullary guide was placed onto the leg. The distal aspect was slid medial to adjust for position of center of ankle and stay in line with shaft of the tibia. Approximately 3-5 degrees of posterior slope was kept in the proximal cutting guide. The center of the guide was aligned with the PCL. The stylus was used to assess cut thickness. The medial side, most involved side, was set for a 2mm cut. This was then held in position and pinned into place with 2 additional pins and a cross pin for stability. The medial and lateral collateral ligaments were protected and the cut was performed. With this completed, it was assessed and noted to be of appropriate dimensions. The guide was removed. A spacer block was inserted and the knee was brought into extension. The 6mm spacer block provided full extension, without hyperextension and with stability of both the medial and lateral collateral ligaments was assessed. The pins from the femur and the tibia were then removed. The distal femur was then sized. The anterior stylus was placed onto the lateral ridge of the anterior femur. This indicated a size 7 femur. The external rotation of the guide was adjusted to 3 degrees to match the epicondylar axis, perpendicular to [place]?s line. The 4-in-1 cutting guide was the placed. The posterior medial femur cut was evaluated and appeared of good thickness. The spacer block was inserted underneath the cutting guide and stability was confirmed in 90 degrees of flexion. An maribeth wing was used to confirm appropriate position of the anterior cut to avoid notching. This cutting guide was ensured to be flush on the cut surface and then pinned into place with headed pins. While protecting the soft tissues, quad tendon, and collateral ligaments, the anterior and posterior cuts were performed with a saw. The central two pins were removed and the posterior and anterior chamfers were cut next. The notch-cutting guide was placed. This was pinned to lateralize the femoral component as much as possible while keeping it flush on the cut surface. This was then pinned into position. A reciprocating saw was used to make the notch cut. A rasp smoothed the cut surfaces. The medial and lateral menisci were removed. A trial femoral component was then inserted, impacted down to the cut surfaces, and the lug holes were drilled. A provisional trial tibial component was placed and the knee was brought through range of motion. The polyethylene was trialed until there was good flexion and extension with excellent stability to the medial and lateral collaterals. The patella was tracking without thumbs. A size 7mm polyethylene component provided the best range of motion and stability with less than 2mm gapping with medial and lateral stress and full extension without significant hyperextension. The tibial cut surface was fully exposed. The tibia was then sized as a 7. The tibia had been previously marked during trialing to correspond to the center of the tibial component to help with rotation. The trial was aligned to this dwayne, approximately rotated to the medial 1/3rd of the tibial tubercle. The trial was pinned into place. The tibia was prepared with a reamer and a keel punch and lug holes. The knee was then brought into extension and the patella was measured as 29mm. Using the patellar clamp and cut guide, this was resected to a flat surface with at least 13mm of thickness remaining. The size 38 patella fit the best. This was oriented and then clamped into position. The lugs were drilled. The trial components were removed. The final components were opened on the back table. The periosteal and capsular tissues, especially posteriorly, around the knee were then systematically injected with a periarticular cocktail consisting of 246mg of Ropivacaine, 0.5mg of Epinephrine, 0.08mg of Clonidine, and 30mg of Ketorolac, diluted to 100cc. On the back table, with the implants opened, the cement was mixed. One batch of high viscosity cement was prepared with vacuum assistance. After the cement was ready a small amount was placed on the cut surface of the patella and the patellar button was clamped into position and held. While the cement was hardening, the cementless knee components were placed. Starting with the tibial component, the tibia was subluxed anteriorly and the lug holes of the component were lined up. The tibia was then impacted with an impactor and mallet until the tibial component was in contact with the tibia. The final polyethylene component was inserted. Then, the femoral component was inserted. The lug holes were aligned and the component was impacted into position. The knee was irrigated with Surgiphor Betadine solution. This was allowed to sit in the knee for 3 minutes and then it was irrigated out with saline. After the cement had finally cured, approximately 15min, the clamp was removed from the patella and the knee was taken through range of motion. The patella was tracking with a no-thumbs technique. The capsule was then reapproximated with a No. 1 Vicryl at multiple locations. The capsule was finally closed with a No. 2 Stratafix, barbed suture. The second dosing of 1g TXA was started. Deep tissues were then reapproximated with 0 Vicryl and 2-0 Vicryl. The skin was closed with a running 3-0 Monocryl in a subcuticular fashion. This was reinforced with skin glue. A Mepilex silver dressing was applied along with a itrf-be-edwur MELISSA wrap. A CryoCuff was applied. Adelfo was transferred to the hospital bed without difficulty an suffering no apparent complication. Adelfo has a good prognosis. Physical therapy will start today and without restrictions, weight-bearing as tolerated. Aspirin 81mg BID will be used for DVT prophylaxis.
--- NOTE | 2022-02-03 07:58 | W.ANESPOSTOP ---
Postoperative Evaluation Date, Time and Location Date Performed: 02/02/22 Time Performed: 11:30 Patient Location: Day Surgery Unit Vital Signs Most Recent Imported Vital Signs: Most Recent Vital Signs Temp Pulse Resp BP Pulse Ox 36.6 C 74 16 148/94 H 100 02/02/22 12:16 02/02/22 12:16 02/02/22 12:16 02/02/22 12:16 02/02/22 12:16 Pain Score Most Recent Pain Score: Most Recent Pain Score Pain Level 6 02/02/22 12:16 Assessment Mental Status: Awake (Alert & Oriented to Patient Baseline) Airway and Respiratory Function: Patent airway with normal (patient baseline) respiratory exam Cardiovascular Function: Hemodynamically Stable Hydration Status: Adequately Hydrated Nausea & Vomiting: No Nausea or Vomiting Pain: Pain is tolerable per patient Peripheral Nerve Block: Regional nerve block not resolved at time of post operative discharge
== END 2022-02-02 13:45 | disposition home or self-care (01) ==
PROVIDERS: PCP Neuromusculoskeletal Medicine & OMM; Visit Provider Student in an Organized Health Care Education/Training Program
PROC: (CPT 27447; principal; 2022-02-02 09:45)
DX: M17.32 Unilateral post-traumatic osteoarthritis, left knee (principal); F41.0 Panic disorder [episodic paroxysmal anxiety]; I10 Essential (primary) hypertension; M10.9 Gout, unspecified
CPT/HCPCS: 27447; 76942; 97162; 97530; J1100; J2250; J2405; J2704

== ENCOUNTER 2022-02-15 13:04 | Outpatient (CLI) | payer OTHER, SELFPAY ==
--- NOTE | 2022-02-15 12:30 | DI.RAD_ITS ---
Exam(s) XR KNEE LT 1V XR STANDING ALIGNMENT EXAM: XR STANDING ALIGNMENT and XR knee LT 1 V CLINICAL HISTORY: 1ST POST OP L TKA. TECHNIQUE: 2D digital imaging was performed. Five images were obtained. COMPARISON: CR ORTHO KNEE LEFT 4+VIEWS from 10/10/2012 CR XR STANDING ALIGNMENT from 01/14/2022 FINDINGS: BONES: No acute fracture is present. No bony destructive lesion is seen. The patient is now status po st left total knee replacement. The orthopedic hardware appears in good position. The hips are well maintained. The right knee is unremarkable. The ankles are well maintained. The right lower extre mity measures 93.5 cm. The left lower extremity measures 93 cm. SOFT TISSUE: Normal. IMPRESSION: Stable left TKR. DATA REPOSITORY: RADIATION DOSE DELIVERED:
== END 2022-02-15 13:05 | disposition home or self-care (01) ==
LOC: DIORS 13:04
PROVIDERS: PCP Neuromusculoskeletal Medicine & OMM; Referring Provider Neuromusculoskeletal Medicine & OMM; Visit Provider Student in an Organized Health Care Education/Training Program
DX: Z96.652 Presence of left artificial knee joint (principal); Z47.1 Aftercare following joint replacement surgery; M21.70 Unequal limb length (acquired), unspecified site
CPT/HCPCS: 73560; 77073

== ENCOUNTER 2025-03-26 15:48 | Outpatient (REF) | payer OTHER, SELFPAY | END 2025-03-26 15:49 | disposition home or self-care (01) | LOC: LBN 15:48 | PROVIDERS: PCP Specialist/Technologist Athletic Trainer; Visit Provider Podiatrist | DX: M10.9 Gout, unspecified (principal) | CPT/HCPCS: 87070; 87075; 87205 ==

== ENCOUNTER 2025-03-26 16:41 | Observation (INO) | payer OTHER, SELFPAY ==
--- NOTE | 2025-03-26 10:19 | DI.RAD_ITS ---
Exam(s) XR FOOT LT COMPLETE EXAM: XR FOOT LT COMPLETE CLINICAL HISTORY: gout. TECHNIQUE: 2D digital imaging was performed. Three views. COMPARISON: No exams were available for comparison FINDINGS: BONES: No acute fracture is present. Lucencies at the base of the distal phalanx and distal aspect of the proximal phalanx. The findings could indicate osteomyelitis. JOINTS: No dislocation present. Widening of the interphalangeal joint of the great toe. SOFT TISSUE: Marked soft tissue swelling of the great toe, greatest around the interphalangeal joint. No foreign body or abnormal gas collection. IMPRESSION: Lucencies at the proximal and distal phalanges which could indicate osteomyelitis. DATA REPOSITORY: RADIATION DOSE DELIVERED:
[2025-03-26 16:43] VITALS: BP 159/105; PULSE 82; RESP 16; TEMP 37.1; O2SAT 99
--- NOTE | 2025-03-26 16:45 | RT.EKG_ITS ---
APPROVED REPORT Exam: Resting ECG Reason for Exam: OR [place] Patient Location: E HR:80 bpm ECG Measurements Heart Rate 80 AXIS NC 164 P 24 QRSd 110 QRS -8 QT 377 T 43 QTc 436 Conclusion Sinus rhythm...normal P axis, V-rate 60- 99 Sinus Rhythm. No prior. WD
--- NOTE | 2025-03-26 17:35 | W.ED.GENAD ---
Discharge Plan Disposition Patient Disposition: Admit to [facility] Condition: Stable Discharge Details Clinical Impression: Cellulitis, Gout Primary Care Provider: Francisco Linda ED Provider: Arelis Posada Home Meds and New Rx's Prescriptions: No Action sertraline 100 mg tablet 100 mg PO DAILY topiramate [Topamax] 50 mg tablet 50 mg PO DAILY cholecalciferol (vitamin D3) 125 mcg (5,000 unit) capsule 125 mcg PO DAILY acetaminophen 500 mg Tablet 1,000 mg acetaminophen 500 mg capsule 1,000 mg PO Q8H PRN PRNQty: 90 0RF ondansetron 4 mg tablet,disintegrating 4 mg PO Q6H PRNQty: 10 0RF escitalopram oxalate 5 mg tablet 5 mg PO PRN PRN Patient Comments: TAKE ONE TABLET BY MOUTH EVERY DAY NEEDED FOR ANXIETY colchicine 0.6 mg tablet 0.6 mg PO DAILY Patient Comments: TAKE ONE TABLET BY MOUTH EVERY DAY UNTIL GOUT FLARE IS IMPROVED allopurinol 300 mg tablet 300 mg PO DAILY Patient Comments: TAKE ONE TABLET BY MOUTH EVERY DAY HPI General Date/Time Provider Initiated Documentation: 03/26/25 16:55. HPI Narrative: 44-year-old male with history of hypertension and longstanding history of gout presents for evaluation of left foot cellulitis. Patient has been treated for gout flare with allopurinol and colchicine over the last 2 weeks. He has had 2 I&D's. Podiatry attempted a I&D in the office today however it was not successful. They sent patient to the emergency department for further evaluation and admission for I&D in OR tomorrow. Patient did take antibiotics initially however did not have any improvement. He is not sure which antibiotic he took at that time. He denies any fevers or chills. He does have significant erythema and swelling to the area. Wound cultures were obtained at podiatry office today. Denies any history of cellulitis or MRSA. He does have significant pain in his foot. Related Data Home Medications ?Medication ?Instructions ?Recorded ?Confirmed cholecalciferol (vitamin D3) 125 125 mcg PO DAILY 11/10/21 03/26/25 mcg (5,000 unit) capsule acetaminophen 500 mg capsule 1,000 mg (2 x 500 mg) PO Q8H PRN 02/02/22 03/26/25 PRN #90 caps acetaminophen 500 mg tablet 1,000 mg 02/02/22 03/26/25 ondansetron 4 mg disintegrating 4 mg PO Q6H PRN #10 tabs 02/02/22 03/26/25 tablet topiramate 50 mg tablet (Topamax) 50 mg PO DAILY 02/15/22 03/26/25 sertraline 100 mg tablet 100 mg PO DAILY 03/15/22 03/26/25 allopurinol 300 mg tablet 300 mg PO DAILY 03/26/25 03/26/25 colchicine 0.6 mg tablet 0.6 mg PO DAILY 03/26/25 03/26/25 escitalopram oxalate 5 mg tablet 5 mg PO PRN PRN 03/26/25 03/26/25 Previous Rx's ?Medication ?Instructions ?Recorded acetaminophen 500 mg capsule 1,000 mg (2 x 500 mg) PO Q8H PRN 02/02/22 PRN #90 caps ondansetron 4 mg disintegrating 4 mg PO Q6H PRN #10 tabs 02/02/22 tablet Allergies Allergy/AdvReac Type Severity Reaction Status Date / Time No Known Allergies Allergy Verified 03/26/25 16:49 General Stated Complaint: Cellulitis FRANCISCA: 3 Review of Systems Narrative: Remainder of review of systems otherwise negative except for as noted in the HPI x 10. Exam Narrative Exam Narrative: General: non-toxic, no respiratory distress, comfortable HEENT: normocephalic, atraumatic, lids and lashes normal, PERRL, EOMI, anicteric sclera, no conjunctival injection, moist oral mucosa Card: regular rate and rhythm, S1S2, no murmurs, rubs, or gallops Lungs: good air entry, clear to auscultation bilaterally. no wheezes, rales, rhonchi, or retractions Abd: soft, non-tender, non-distended, normal bowel sounds, no rebound or guarding, no peritoneal signs Musculoskeletal: Dressing in place to left foot, no erythema, warmth, or swelling in lower leg, otherwise full range of motion of arms and legs, no tenderness to palpation. no clubbing, cyanosis, or edema Neurologic: appropriate for age, strength normal Psych: alert and oriented Skin: As above, otherwise no petechiae, no lesions, warm and dry Course Vital Signs Vital signs: Vital Signs Temperature 37.1 C 03/26/25 16:43 Pulse 82 03/26/25 16:43 Respiratory Rate 16 03/26/25 16:43 Blood Pressure 159/105 H 03/26/25 16:43 Pulse Oximetry 99 03/26/25 16:43 Temperature 37.1 C 03/26/25 16:43 Temperature Source Oral 03/26/25 16:43 Pulse 82 03/26/25 16:43 Respiratory Rate 16 03/26/25 16:43 Blood Pressure 159/105 H 03/26/25 16:43 Blood Pressure Position Sitting 03/26/25 16:43 Pulse Oximetry 99 03/26/25 16:43 Oxygen Delivery Method Room Air 03/26/25 16:43 Oxygen Flow Rate 0 03/26/25 16:43 Lab/Test Results Lab/Test Results: 03/26/25 17:02 Blood Blood Culture - Pending 03/26/25 17:02 Blood Blood Culture - Pending Medical Decision Making 44-year-old male presents for evaluation of ongoing wound to left foot. Laboratory studies show mild increase in inflammatory markers. White count and lactic acid are normal. X-ray concerning for possible osteo myelitis. Patient started on ceftriaxone and vancomycin. Plan is for n.p.o. after midnight 4 OR tomorrow. Case discussed with hospitalist who will admit to their service. PFSH All Active Problems (Updated 03/26/25 @ 18:49 by Arelis Posada MD) Tophus (Acute) Abscess of foot (Acute) Pain in left foot (Acute) Cellulitis (Acute) Gout (Chronic) History of total left knee replacement (Acute 02/02/22) Gout (Chronic) Hypertensive disorder (Chronic) Medical History Unilateral inguinal hernia, without obstruction or gangrene, not specified as recurrent Panic disorder without agoraphobia Secondary polycythemia Pt. unsure of this Surgical History History of urinary tract surgery Hx of appendectomy Hx of knee surgery x3 Hx of inguinal hernia repair Social History Smoking/Tobacco Use Status: Former Tobacco Use tobacco type: smokeless tobacco Quit Date: 08/30/15 Smokeless tobacco user: chewing tobacco Smoking risk assessment performed?: Yes Alcohol Intake: former Drug use: Daily Substance use type: marijuana Details: last used 2 weeks ago. Do you feel safe at home: Yes Do you feel safe in your relationship?: Yes
[2025-03-26 17:40] VITALS: BP 159/105; PULSE 82; RESP 16; TEMP 37.1; O2SAT 99
[2025-03-26 17:45] LABS: Abs Immature Grans 0.05 10^3/uL (0.0-0.06); HCT 44.0 % (40.0-50.0); HGB 15.4 g/dL (13.5-17.5); Immature Grans % 0.6 %; MCH 30.0 pg (27.0-33.0); MCHC 35.0 % (32.0-36.0); MCV 86 fL (80-95); MPV 11.0 fL (8.0-11.0); Platelet Count 305 10^3/uL (130-400); RBC 5.13 10^6/uL (4.36-5.78); RDW 11.7 % (11.8-14.1); RDW-SD 36.4 fL; WBC 8.66 10^3/uL (4.4-10.8)
[2025-03-26 17:58] LABS: ESR 20 mm/hr (0-15)
[2025-03-26 17:59] LABS: Glucose Negative (Negative)
[2025-03-26] MEDS: MORPHine 4 MG/ML SYR IVP (18:06)
[2025-03-26] MEDS: Ondansetron 4 MG/2 ML VIAL IM (18:06)
[2025-03-26 18:09] LABS: ALT 32 U/L (16-63); AST 19 U/L (15-37); Albumin 4.4 g/dL (3.4-5.0); Alkaline Phosphatase 74 U/L (46-116); Anion Gap 10.1 mmol/L (3-11); BUN 14 mg/dL (7-18); Bilirubin, Total 0.7 mg/dL (0.2-1.0); CO2 25.9 mmol/L (21.0-32.0); Calcium 9.4 mg/dL (8.5-10.1); Chloride 102 mmol/L (98-107); Estimated GFR 111.92 (mL/min/1.73m2); Glucose 97 mg/dL (74-106); Magnesium 1.9 mg/dL (1.8-2.4); Potassium 3.7 mmol/L (3.5-5.1); Sodium 138 mmol/L (136-145); Total Protein 8.0 g/dL (6.4-8.2); Troponin I 4 ng/L (<or=76)
[2025-03-26] MEDS: cefTRIAXone 2 GM/50 ML BAG IVPB (18:19)
[2025-03-26 18:32] LABS: C-Reactive Protein 0.94 mg/dL (<or=0.5); Uric Acid 6.2 mg/dL (3.5-7.2)
[2025-03-26] MEDS: VANCOMYCIN 2,000 MG in Normal Saline 500 ML 250 MG IVPB (18:40)
[2025-03-26 19:53] LABS: Troponin I 4 ng/L (<or=76)
[2025-03-26 20:40] VITALS: BP 171/102; TEMP 37.3
--- NOTE | 2025-03-26 21:02 | W.PM.HP.N ---
Date of service: 03/26/25 Time of Service: 20:00 Assessment and Plan Assessment and plan (1) Abscess of foot: Status: Acute Assessment and plan: NPO for surgery March [address] Eid PRN morphine for pain Anticipate post-op PT evaluation (2) Elevated blood pressure reading without diagnosis of hypertension: Status: Acute Assessment and plan: BPs as high as 170's / 100's due to pain, improved with narcotics (3) Major depression, recurrent, chronic: Status: Acute Assessment and plan: Continue home escitalopram (4) Severe obesity (BMI >= 40): Status: Acute Assessment and plan: Outpatient followup History of Present Illness History of Present Illness Chief Complaint: left foot swelling and pain Narrative: Adelfo Garay is a 44 year old man presenting March 26, 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 Patient reports that he sought treatment in mid-February for worsening pain and swelling in the left great toe joint. He has been on daily allopurinol and colchicine, with increasing doses, as well as on docycycline. PCP determined his symptoms & I&D to be consistent with tophaceous gout. As symptoms did not improve, he saw podiatry today and I&D was attempted in office. On request of his sales associate cashier he is admitted for I&D in the OR March 27. PMH includes gout diagnosed 2008, major depression, obesity BMI 43 In the ED he was hypertensive 150's / 100's, vitals otherwise unremarkable. CBC and CMP unremarkable. ESR elevated at 20. CRP elevated at 0.94. Cultures pending. He was started on ceftriaxone and vancomycin. PFSH All Active Problems (Updated 03/27/25 @ 04:12 by Gurpreet Vidal MD) Severe obesity (BMI >= 40) (Acute) Major depression, recurrent, chronic (Acute) Elevated blood pressure reading without diagnosis of hypertension (Acute) Tophus (Acute) Abscess of foot (Acute) Pain in left foot (Acute) Cellulitis (Acute) Gout (Chronic) History of total left knee replacement (Acute 02/02/22) Gout (Chronic) Hypertensive disorder (Chronic) Medical History Unilateral inguinal hernia, without obstruction or gangrene, not specified as recurrent Panic disorder without agoraphobia Secondary polycythemia Pt. unsure of this Surgical History History of urinary tract surgery Hx of appendectomy Hx of knee surgery x3 Hx of inguinal hernia repair Social History Smoking/Tobacco Use Status: Former Tobacco Use tobacco type: smokeless tobacco Quit Date: 08/30/15 Smokeless tobacco user: chewing tobacco Smoking risk assessment performed?: Yes Alcohol Intake: former Drug use: Daily Substance use type: marijuana Details: last used 2 weeks ago. Housing: house Do you feel safe at home: Yes Do you feel safe in your relationship?: Yes Meds Allergies and Home Medications Allergies Allergy/AdvReac Type Severity Reaction Status Date / Time No Known Allergies Allergy Verified 03/26/25 16:49 Home Medications ?Medication ?Instructions ?Recorded ?Confirmed ?Type cholecalciferol (vitamin D3) 125 125 mcg PO DAILY 11/10/21 03/26/25 History mcg (5,000 unit) capsule acetaminophen 500 mg capsule 1,000 mg (2 x 500 mg) PO Q8H PRN 02/02/22 03/26/25 Rx PRN #90 caps acetaminophen 500 mg tablet 1,000 mg PO Q8H PRN PRN 02/02/22 03/26/25 History ondansetron 4 mg disintegrating 4 mg PO Q6H PRN #10 tabs 02/02/22 03/26/25 Rx tablet topiramate 50 mg tablet (Topamax) 50 mg PO DAILY 02/15/22 03/26/25 History sertraline 100 mg tablet 100 mg PO DAILY 03/15/22 03/26/25 History allopurinol 300 mg tablet 300 mg PO DAILY 03/26/25 03/26/25 History colchicine 0.6 mg tablet 0.6 mg PO DAILY 03/26/25 03/26/25 History escitalopram oxalate 5 mg tablet 5 mg PO PRN PRN 03/26/25 03/26/25 History Exam Narrative Exam Narrative: General: This is a pleasant, obese man in no acute distress HEENT: Normocephalic, atraumatic CV: RRR Resp: CTAB Abd: soft, obese, NTND +NBS MSK: Left foot dressed, appropriately tender. Voluntary motion x4 Neuro: Awake and alert, no focal deficits Results Labs 03/26/25 17:34 03/26/25 17:34 Labs: Laboratory Results - last 24 hr 03/26/25 03/26/25 03/26/25 17:34 17:47 19:06 WBC 8.66 RBC 5.13 Hgb 15.4 Hct 44.0 MCV 86 MCH 30.0 MCHC 35.0 RDW 11.7 L Plt Count 305 MPV 11.0 Immature Gran % 0.6 Neutrophils % 62.5 Lymphocytes % 25.1 Monocytes % 8.2 Eosinophils % 2.7 Basophils % 0.9 Nucleated RBC % 0.0 Absolute Neutrophils 5.42 Absolute Lymphocytes 2.17 Absolute Monocytes 0.71 Absolute Eosinophils 0.23 Absolute Basophils 0.08 ESR 20 H VBG Lactate 0.9 Sodium 138 Potassium 3.7 Chloride 102 Carbon Dioxide 25.9 Anion Gap 10.1 BUN 14 Creatinine 0.8 Est GFR (CKD-EPI 2020) 111.92 Glucose 97 Uric Acid 6.2 Calcium 9.4 Magnesium 1.9 Total Bilirubin 0.7 AST 19 ALT 32 Alkaline Phosphatase 74 Troponin I 4 4 C-Reactive Protein 0.94 H Total Protein 8.0 Albumin 4.4 Urine Color Yellow Urine Clarity Clear Urine pH 6.0 Ur Specific [place] 1.015 Urine Protein Negative Urine Ketones Negative Urine Blood Negative Urine Nitrite Negative Urine Bilirubin Negative Urine Urobilinogen 0.2 Ur Leukocyte Esterase Negative Urine Glucose Negative 03/26/25 19:55 WBC RBC Hgb Hct MCV MCH MCHC RDW Plt Count MPV Immature Gran % Neutrophils % Lymphocytes % Monocytes % Eosinophils % Basophils % Nucleated RBC % Absolute Neutrophils Absolute Lymphocytes Absolute Monocytes Absolute Eosinophils Absolute Basophils ESR VBG Lactate Sodium Potassium Chloride Carbon Dioxide Anion Gap BUN Creatinine Est GFR (CKD-EPI 2020) Glucose Uric Acid Calcium Magnesium Total Bilirubin AST ALT Alkaline Phosphatase Troponin I Cancelled C-Reactive Protein Total Protein Albumin Urine Color Urine Clarity Urine pH Ur Specific [place] Urine Protein Urine Ketones Urine Blood Urine Nitrite Urine Bilirubin Urine Urobilinogen Ur Leukocyte Esterase Urine Glucose Last Vital Signs Temp 37.3 C 03/26/25 20:40 Pulse 82 03/26/25 17:40 Resp 16 03/26/25 17:40 BP 171/102 H 03/26/25 20:40 Pulse Ox 99 03/26/25 17:40 Time Spent Time spent with Patient: 40-54 minutes Time was spent: preparing to see the patient(eg.review tests), obtaining and/or reviewing separately otained hiistory, ordering medications,tests, procedures, referring, communicating with other health geriatric personal care aide, indepentently interpreting results, counseling the patient and care coordination
[2025-03-26 21:39] VITALS: BP 144/99; PULSE 85; RESP 20; TEMP 37.1; O2SAT 97
[2025-03-26 21:54] VITALS: BP 144/99; PULSE 85; RESP 20; TEMP 37.1; O2SAT 97
[2025-03-26] MEDS: Normal Saline Flush 10 ML SYR (22:31)
--- NOTE | 2025-03-26 22:36 | W.PC.ACHO ---
Registration Status: ADM LUZ Primary Language: Preferred Language: ED Information & Data Chief Complaint Cellulitis 03/26/25 17:37 Triage Note Patient state he has gout 03/26/25 16:43 and was sent from podiatry for admission Medical / Surgical History (Last Reviewed 03/26/25 @ 17:37 by Arelis Posada MD) Unilateral inguinal hernia, without obstruction or gangrene, not specified as recurrent Panic disorder without agoraphobia Secondary polycythemia (Last Reviewed 03/26/25 @ 17:37 by Arelis Posada MD) History of urinary tract surgery Hx of appendectomy Hx of knee surgery Hx of inguinal hernia repair Most Recent Vital Signs Temperature 37.1 C 03/26/25 21:54 Temperature Source Temporal Artery Scan 03/26/25 21:39 Pulse 85 03/26/25 21:54 Respiratory Rate 20 03/26/25 21:54 Respiratory Effort Normal 03/26/25 21:54 Respiratory Depth Normal 03/26/25 21:54 Respiratory Pattern Normal 03/26/25 21:54 Blood Pressure 144/99 H 03/26/25 21:54 Blood Pressure Mean 114 03/26/25 21:39 Blood Pressure Position Sitting 03/26/25 17:40 Pulse Oximetry 97 03/26/25 21:54 Oxygen Delivery Method Room Air 03/26/25 21:54 Oxygen Flow Rate 0 03/26/25 21:54 Pain Level 6 03/26/25 21:54 Allergies No Known Allergies Allergy (Verified 03/26/25 16:49) IV IV Catheter Type [Right Wrist] Saline Lock IV Catheter Gauge [Right Wrist 18 ] Diet Orders Category Date Time Status Nothing Per Oral [DIET] Nutrition 03/27/25 00:01 Ordered Diagnostics 03/26/25 03/26/25 03/26/25 Range/Units 19:55 19:06 17:47 WBC (4.4-10.8) 10^3/uL RBC (4.36-5.78) 10^6/uL Hgb (13.5-17.5) g/dL Hct (40.0-50.0) % MCV (80-95) fL MCH (27.0-33.0) pg MCHC (32.0-36.0) % RDW (11.8-14.1) % Plt Count (130-400) 10^3/uL MPV (8.0-11.0) fL Immature Gran % % Neutrophils % % Lymphocytes % % Monocytes % % Eosinophils % % Basophils % % Nucleated RBC % (0.0-0.3) % Absolute Neutrophils (1.2-6.7) 10^3/uL Absolute Lymphocytes (1.2-3.4) 10^3/uL Absolute Monocytes (0.1-0.8) 10^3/uL Absolute Eosinophils (0.0-0.7) 10^3/uL Absolute Basophils (0.0-0.2) 10^3/uL ESR (0-15) mm/hr VBG Lactate (<or=2.0) mmol/L Sodium (136-145) mmol/L Potassium (3.5-5.1) mmol/L Chloride (98-107) mmol/L Carbon Dioxide (21.0-32.0) mmol/L Anion Gap (3-11) mmol/L BUN (7-18) mg/dL Creatinine (0.70-1.30) mg/dL Est GFR (CKD-EPI 2020) (mL/min/1.73m2) Glucose (74-106) mg/dL Uric Acid (3.5-7.2) mg/dL Calcium (8.5-10.1) mg/dL Magnesium (1.8-2.4) mg/dL Total Bilirubin (0.2-1.0) mg/dL AST (15-37) U/L ALT (16-63) U/L Alkaline Phosphatase (46-116) U/L Troponin I Cancelled 4 (<or=76) ng/L C-Reactive Protein (<or=0.5) mg/dL Total Protein (6.4-8.2) g/dL Albumin (3.4-5.0) g/dL Urine Color Yellow (Yellow) Urine Clarity Clear (Clear) Urine pH 6.0 (5-8) Ur Specific [place] 1.015 (1.005-1.025) Urine Protein Negative (Neg-Trace) mg/dL Urine Ketones Negative (Negative) mg/dL Urine Blood Negative (Negative) Urine Nitrite Negative (Negative) Urine Bilirubin Negative (Negative) Urine Urobilinogen 0.2 (Up to 0.2) mg/dL Ur Leukocyte Esterase Negative (Negative) Urine Glucose Negative (Negative) mg/dL 03/26/25 Range/Units 17:34 WBC 8.66 (4.4-10.8) 10^3/uL RBC 5.13 (4.36-5.78) 10^6/uL Hgb 15.4 (13.5-17.5) g/dL Hct 44.0 (40.0-50.0) % MCV 86 (80-95) fL MCH 30.0 (27.0-33.0) pg MCHC 35.0 (32.0-36.0) % RDW 11.7 L (11.8-14.1) % Plt Count 305 (130-400) 10^3/uL MPV 11.0 (8.0-11.0) fL Immature Gran % 0.6 % Neutrophils % 62.5 % Lymphocytes % 25.1 % Monocytes % 8.2 % Eosinophils % 2.7 % Basophils % 0.9 % Nucleated RBC % 0.0 (0.0-0.3) % Absolute Neutrophils 5.42 (1.2-6.7) 10^3/uL Absolute Lymphocytes 2.17 (1.2-3.4) 10^3/uL Absolute Monocytes 0.71 (0.1-0.8) 10^3/uL Absolute Eosinophils 0.23 (0.0-0.7) 10^3/uL Absolute Basophils 0.08 (0.0-0.2) 10^3/uL ESR 20 H (0-15) mm/hr VBG Lactate 0.9 (<or=2.0) mmol/L Sodium 138 (136-145) mmol/L Potassium 3.7 (3.5-5.1) mmol/L Chloride 102 (98-107) mmol/L Carbon Dioxide 25.9 (21.0-32.0) mmol/L Anion Gap 10.1 (3-11) mmol/L BUN 14 (7-18) mg/dL Creatinine 0.8 (0.70-1.30) mg/dL Est GFR (CKD-EPI 2020) 111.92 (mL/min/1.73m2) Glucose 97 (74-106) mg/dL Uric Acid 6.2 (3.5-7.2) mg/dL Calcium 9.4 (8.5-10.1) mg/dL Magnesium 1.9 (1.8-2.4) mg/dL Total Bilirubin 0.7 (0.2-1.0) mg/dL AST 19 (15-37) U/L ALT 32 (16-63) U/L Alkaline Phosphatase 74 (46-116) U/L Troponin I 4 (<or=76) ng/L C-Reactive Protein 0.94 H (<or=0.5) mg/dL Total Protein 8.0 (6.4-8.2) g/dL Albumin 4.4 (3.4-5.0) g/dL Urine Color (Yellow) Urine Clarity (Clear) Urine pH (5-8) Ur Specific [place] (1.005-1.025) Urine Protein (Neg-Trace) mg/dL Urine Ketones (Negative) mg/dL Urine Blood (Negative) Urine Nitrite (Negative) Urine Bilirubin (Negative) Urine Urobilinogen (Up to 0.2) mg/dL Ur Leukocyte Esterase (Negative) Urine Glucose (Negative) mg/dL 03/26/25 18:30 Blood Culture - Pending Blood 03/26/25 17:34 Blood Culture - Pending Blood Intake and Output - 24 Hour Total 03/26/25 16:40 thru 03/26/25 21:54 Intake Total 100 Balance 100 Weight 136.078 kg Intake: IV 100 Other: Urine Color Yellow Urine Appearance Clear Urine Odor None Falls Risk Assessment History of Falls No History 03/26/25 21:54 Contributing Factors Impairments 03/26/25 21:54 Ambulatory Aids Independent 03/26/25 21:54 Tubes/Lines None 03/26/25 21:54 Gait Evaluation W/any additional score 03/26/25 21:54 Cognition No cognitive impairment 03/26/25 21:54 Fall Total Score 23 03/26/25 21:54 Level of Risk Standard/Low Risk 03/26/25 21:54 Problems (Last Reviewed 03/26/25 @ 17:37 by Arelis Posada MD) Cellulitis (Acute) Gout (Chronic) v v v v v v v v v Sending and/or Receiving Nurses: Please use comment section below to note any information pertinent to the patient hand-off not included above. Information / Comments:Received pt from the ED per wheelchair accompanied by ED nurse.A&Ox4.With IV vancomycin hooked to his right wrist IV line.Left foot wrapped with Colleen wrap.VS taken and recorded.Admitting documentation started.Situated pt. into comfortable position.Ensured safety. Report received from:Mindy
[2025-03-27] VITALS (36 sets, daily range): BP systolic 99–190; BP diastolic 44–123; PULSE 59–78; RESP 10–20; TEMP 35.7–37.1; O2SAT 92–97; BMI 46.5
[2025-03-27] MEDS: MORPHine 2 MG/ML SYR IVP ×3 (00:12→08:27)
[2025-03-27] MEDS: VANCOMYCIN 2,000 MG in Normal Saline 500 ML 250 MG IVPB (06:07)
[2025-03-27 07:08] LABS: Uric Acid 4.5 mg/dL (3.5-7.2)
[2025-03-27 07:59] LABS: INR 1.0 (0.9-1.1); Prothrombin Time 10.2 sec (9.1-11.1)
[2025-03-27 08:21] LABS: Vancomycin, Random 9.2 ug/mL
[2025-03-27] MEDS: Normal Saline Flush 10 ML SYR IVP ×2 (08:27→16:23)
--- NOTE | 2025-03-27 10:16 | PDOC.CMIN ---
Date of service: 03/27/25 Time of Service: 14:39 Care Management Initial Assmt Initial Assessment Reason for Hospitalization: celluitis Functional Status/Living Situation Patient Presentation: Adelfo was in the PACU when CM went to met with him but his Sabine. He presented to the ED from Podiatry for further evaluation and admission fro I&D in OR tomorrow. Adelfo in NPO at this time and has a PT consult ordered. Per report, Adelfo recieved outpatinet antibiotics which failed. Sabine provided the following information in Adelfo's PACU absence. Adelfo is living in [place] with his and 2 children. He is independant at baseline, including driving. Per Sabine, they are well supported by friends and family so require no community supports. CM will continue to follow. Town of Residence: [place] Resides with: Spouse (Sabine) Significant Other/Family: Local Natural Supports: Family, friends Employment Status: Employed (Per Sabine, he will not need a work note. ) Instrumental Activities of Daily Living (ADLs): Independent Medications Medication Management: No Issues/Barriers identified Physical Functioning/Mobility Assistive Device: No devices at baseline. Advance Directives Advance Directives: Do you have an Advance Directive: N 03/26/25, 20:35 AD On File at [facility]: N 03/26/25, 10:49 Date Asked 03/26/25 03/26/25, 16:52 AD Date Reviewed COLST On File at [facility] COLST Date Scanned Code Status Resuscitation Status Full Code Portal Pt does not currently have a portal and education provided: Yes Insurance Coverage/Financial Issues Insurance: [employer] (U IDs Only) Care Team Visit Care Team Role Provider Type Rosenda Caban NP MD [facility] STAFF PHYSICIAN Francisco Linda DO Primary Care Provider NON-[facility] STAFF PHYSICIAN Chilango Guido Other Providers OTHER Arelis Posada MD Emergency Provider [facility] STAFF PHYSICIAN Gurpreet Vidal MD Admit Provider [facility] STAFF PHYSICIAN Attending Provider Discharge Potential Discharge Needs: PT Evaluation, PCP F/U Appt and Surgical F/U Appt Anticipated Barriers to Discharge: Medical Status Patient/Family Education Needs: Review discharge instructions, discuss Ask Me Three Transportation: Private vehicle Plan: Anticipate Adelfo will be discharged home once medically ready, possibly with new services pending PT consult. He will follow up with his community providers, surgical team, and plan of care. He will transport via private vehicle by family. CM will continue to follow. Social Determinants of Health Screening Will the Patient Participate in the Screening?: Declined to provide In the past 12 months, have you had to go without electric, gas, oil or water in your home?: no Has lack of transportation kept you from medical appointments or from doing things needed for daily living?: no How often do you feel lonely or isolated from those around you?: Never Do you speak a language other than [place] at home?: Yes Health Related Social Needs Health related social needs: education (Z55.6) Health related social needs details: More knowledge about how his left toe be okay and wont get worse of its infection. PFSH All Active Problems Severe obesity (BMI >= 40) (Acute) Major depression, recurrent, chronic (Acute) Elevated blood pressure reading without diagnosis of hypertension (Acute) Tophus (Acute) Abscess of foot (Acute) Pain in left foot (Acute) Cellulitis (Acute) Gout (Chronic) History of total left knee replacement (Acute 02/02/22) Gout (Chronic) Hypertensive disorder (Chronic) Medical History Unilateral inguinal hernia, without obstruction or gangrene, not specified as recurrent Panic disorder without agoraphobia Secondary polycythemia Pt. unsure of this Surgical History History of urinary tract surgery Hx of appendectomy Hx of knee surgery x3 Hx of inguinal hernia repair Social History Smoking/Tobacco Use Status: Former Tobacco Use tobacco type: smokeless tobacco Quit Date: 08/30/15 Smokeless tobacco user: chewing tobacco Smoking risk assessment performed?: Yes Alcohol Intake: former Drug use: Daily Substance use type: marijuana Details: last used 2 weeks ago. Housing: house Do you feel safe at home: Yes Do you feel safe in your relationship?: Yes
--- NOTE | 2025-03-27 10:47 | W.PM.PROGNOT ---
Date of Service Date of service: 03/27/25 Time of Service: 10:47 Objective Last Vital Signs Temp 35.7 C L 03/27/25 07:14 Pulse 63 03/27/25 07:14 Resp 14 03/27/25 07:14 BP 150/91 H 03/27/25 07:14 Pulse Ox 96 03/27/25 07:14 Laboratory Results - last 24 hr 03/26/25 03/26/25 03/26/25 17:34 17:47 19:06 WBC 8.66 RBC 5.13 Hgb 15.4 Hct 44.0 MCV 86 MCH 30.0 MCHC 35.0 RDW 11.7 L Plt Count 305 MPV 11.0 Immature Gran % 0.6 Neutrophils % 62.5 Lymphocytes % 25.1 Monocytes % 8.2 Eosinophils % 2.7 Basophils % 0.9 Nucleated RBC % 0.0 Absolute Neutrophils 5.42 Absolute Lymphocytes 2.17 Absolute Monocytes 0.71 Absolute Eosinophils 0.23 Absolute Basophils 0.08 ESR 20 H PT INR VBG Lactate 0.9 Sodium 138 Potassium 3.7 Chloride 102 Carbon Dioxide 25.9 Anion Gap 10.1 BUN 14 Creatinine 0.8 Est GFR (CKD-EPI 2020) 111.92 Glucose 97 Uric Acid 6.2 Calcium 9.4 Magnesium 1.9 Total Bilirubin 0.7 AST 19 ALT 32 Alkaline Phosphatase 74 Troponin I 4 4 C-Reactive Protein 0.94 H Total Protein 8.0 Albumin 4.4 Urine Color Yellow Urine Clarity Clear Urine pH 6.0 Ur Specific [place] 1.015 Urine Protein Negative Urine Ketones Negative Urine Blood Negative Urine Nitrite Negative Urine Bilirubin Negative Urine Urobilinogen 0.2 Ur Leukocyte Esterase Negative Urine Glucose Negative Random Vancomycin 03/26/25 03/27/25 03/27/25 19:55 05:00 07:30 WBC RBC Hgb Hct MCV MCH MCHC RDW Plt Count MPV Immature Gran % Neutrophils % Lymphocytes % Monocytes % Eosinophils % Basophils % Nucleated RBC % Absolute Neutrophils Absolute Lymphocytes Absolute Monocytes Absolute Eosinophils Absolute Basophils ESR PT 10.2 INR 1.0 VBG Lactate Sodium Potassium Chloride Carbon Dioxide Anion Gap BUN Creatinine Est GFR (CKD-EPI 2020) Glucose Uric Acid 4.5 Calcium Magnesium Total Bilirubin AST ALT Alkaline Phosphatase Troponin I Cancelled C-Reactive Protein Total Protein Albumin Urine Color Urine Clarity Urine pH Ur Specific [place] Urine Protein Urine Ketones Urine Blood Urine Nitrite Urine Bilirubin Urine Urobilinogen Ur Leukocyte Esterase Urine Glucose Random Vancomycin 9.2 PAWSS Have you Been Recently Intoxicated or Drunk Within the Last 30 days?: Yes Have you Ever Experienced Previous Episodes of Alcohol Withdrawal?: No Have you ever Experienced Withdrawal Seizures?: No Have you ever Experienced Delirium Tremens(DT)s?: No Have you ever undergone Alcohol Rehabilitation Treatment (i.e, inpt ot outpatient treatment programs)?: No Have you ever Experienced Blackouts?: No Have you ever Combined Alcohol with other Downers within the last 90 days?: No Have you ever Combined Alcohol with any other Substance of Abuse during the last 90 days?: No Positive Blood Alcohol level on Presentation? [PCS.BAL]: Unable to Obtain Evidence of Increased Autonomic Activity (i.e. HR>120, tremor, sweating, agitation, nausea)?: No Result: 1
--- NOTE | 2025-03-27 11:43 | POCOE_ITS ---
Date of service: 03/27/25 Time of Service: 12:20 Assessment and Plan Assessment and plan (1) Abscess of foot: Status: Acute (2) Tophus: Status: Acute (3) Pain in left foot: Status: Acute (4) Cellulitis: Status: Acute (5) Gout: Status: Chronic (6) Gout: Status: Chronic Assessment and plan: Patient seen for gout/abscess/cellulitis for the left hallux.. Plan is to go to the OR for an I&D. X-rays reviewed. Some concern for osteomyelitis however the cortices are fairly intact appearing there is some lucency here however. May attempt a biopsy if indicated IntraOp. History of Present Illness Narrative: Patient seen for left hallux gout/cellulitis/abscess. He has been admitted. Continues to report pain however states pain has reduced significantly. No new pedal complaints. PFSH All Active Problems Severe obesity (BMI >= 40) (Acute) Major depression, recurrent, chronic (Acute) Elevated blood pressure reading without diagnosis of hypertension (Acute) Tophus (Acute) Abscess of foot (Acute) Pain in left foot (Acute) Cellulitis (Acute) Gout (Chronic) History of total left knee replacement (Acute 02/02/22) Hypertensive disorder (Chronic) Gout (Chronic) Medical History Unilateral inguinal hernia, without obstruction or gangrene, not specified as recurrent Panic disorder without agoraphobia Secondary polycythemia Pt. unsure of this Surgical History History of urinary tract surgery Hx of appendectomy Hx of knee surgery x3 Hx of inguinal hernia repair Social History Smoking/Tobacco Use Status: Former Tobacco Use tobacco type: smokeless tobacco Quit Date: 08/30/15 Smokeless tobacco user: chewing tobacco Smoking risk assessment performed?: Yes Alcohol Intake: former Drug use: Daily Substance use type: marijuana Details: last used 2 weeks ago. Housing: house Do you feel safe at home: Yes Do you feel safe in your relationship?: Yes Exam Extrem Other: Cardio Pedal pulses are +2/4 b/l LE. There is no edema to b/l LE. Capillary fill time is less than 3 seconds to distal digits bilaterally. Skin temperature is warm to warm bilateral lower extremity. No varicose veins or spider veins noted bilaterally. Hair growth is noted bilaterally. Musc Severe pain on palpation, weightbearing and ambulation as well as erythema, significant edema noted to the left hallux left hallux is at least twice the size of the right hallux secondary to edema and erythema. Skin Skin texture and turgor are within normal limits, bilaterally. There are no lesions, growths, subcutaneous nodules or ulcers bilaterally. There is no erythema, ecchymosis or rash to either LE. Hair growth is normal bilaterally. The nails 1-10 are normal with no thickening or discoloration. There is no incurvation or infections of any of the nails. Small scab noted to the dorsal aspect of the left hallux IPJ consistent with an I&D puncture wound. There is edema, erythema, bogginess to the left hallux. Left hallux is at least twice the size of the right hallux. There is warmth noted. No proximal streaking no lymphangitis Neuro Light touch sensation is within normal limits to b/l LE as tested on [facility]. Proprioception is within normal limits b/l LE. There is no evidence of intermetatarsal neuroma bilateral LE. There are no signs of posterior tibial, common peroneal, superficial peroneal, or sural neuritis bilateral LE. Results Last Vital Signs Temp 96.3 F L 03/27/25 07:14 Pulse 63 03/27/25 07:14 Resp 14 03/27/25 07:14 BP 150/91 H 03/27/25 07:14 Pulse Ox 96 03/27/25 07:14 Labs 03/26/25 17:34 03/26/25 17:34 Labs: Laboratory Results - last 24 hr 03/26/25 03/26/25 03/26/25 17:34 17:47 19:06 WBC 8.66 RBC 5.13 Hgb 15.4 Hct 44.0 MCV 86 MCH 30.0 MCHC 35.0 RDW 11.7 L Plt Count 305 MPV 11.0 Immature Gran % 0.6 Neutrophils % 62.5 Lymphocytes % 25.1 Monocytes % 8.2 Eosinophils % 2.7 Basophils % 0.9 Nucleated RBC % 0.0 Absolute Neutrophils 5.42 Absolute Lymphocytes 2.17 Absolute Monocytes 0.71 Absolute Eosinophils 0.23 Absolute Basophils 0.08 ESR 20 H PT INR VBG Lactate 0.9 Sodium 138 Potassium 3.7 Chloride 102 Carbon Dioxide 25.9 Anion Gap 10.1 BUN 14 Creatinine 0.8 Est GFR (CKD-EPI 2020) 111.92 Glucose 97 Uric Acid 6.2 Calcium 9.4 Magnesium 1.9 Total Bilirubin 0.7 AST 19 ALT 32 Alkaline Phosphatase 74 Troponin I 4 4 C-Reactive Protein 0.94 H Total Protein 8.0 Albumin 4.4 Urine Color Yellow Urine Clarity Clear Urine pH 6.0 Ur Specific Galvin 1.015 Urine Protein Negative Urine Ketones Negative Urine Blood Negative Urine Nitrite Negative Urine Bilirubin Negative Urine Urobilinogen 0.2 Ur Leukocyte Esterase Negative Urine Glucose Negative Random Vancomycin 03/26/25 03/27/25 03/27/25 19:55 05:00 07:30 WBC RBC Hgb Hct MCV MCH MCHC RDW Plt Count MPV Immature Gran % Neutrophils % Lymphocytes % Monocytes % Eosinophils % Basophils % Nucleated RBC % Absolute Neutrophils Absolute Lymphocytes Absolute Monocytes Absolute Eosinophils Absolute Basophils ESR PT 10.2 INR 1.0 VBG Lactate Sodium Potassium Chloride Carbon Dioxide Anion Gap BUN Creatinine Est GFR (CKD-EPI 2020) Glucose Uric Acid 4.5 Calcium Magnesium Total Bilirubin AST ALT Alkaline Phosphatase Troponin I Cancelled C-Reactive Protein Total Protein Albumin Urine Color Urine Clarity Urine pH Ur Specific Galvin Urine Protein Urine Ketones Urine Blood Urine Nitrite Urine Bilirubin Urine Urobilinogen Ur Leukocyte Esterase Urine Glucose Random Vancomycin 9.2
--- NOTE | 2025-03-27 12:27 | ANES.PREOP_ITS ---
General Info Date of Service Date Performed: 03/27/25 Height: 5 ft 10 in Weight: 147.162 kg Body Mass Index (BMI): 46.5 Surgical Procedure: Operation Date: 03/27/25 12:10 Proposed Procedure Side Surgeon p I&D Foot Left Leanna Eid DPM Meds Allergies and Home Medications Allergies Allergy/AdvReac Type Severity Reaction Status Date / Time No Known Allergies Allergy Verified 03/26/25 16:49 Home Medication ?Medication ?Instructions ?Recorded cholecalciferol (vitamin D3) 125 125 mcg PO DAILY 10/27 01/17 mcg (5,000 unit) capsule acetaminophen 500 mg capsule 1,000 mg (2 x 500 mg) PO Q8H PRN 02/02/22 PRN #90 caps acetaminophen 500 mg tablet 1,000 mg PO Q8H PRN PRN ondansetron 4 mg disintegrating 4 mg PO Q6H PRN #10 ta bs 02/02/22 tablet topiramate 50 mg tablet (Topamax) 50 mg PO DAILY 02/15 sertraline 100 mg tablet 100 mg PO DAILY 03/15/22 allopurinol 300 mg tablet 300 mg PO DAILY 03/26/25 colchicine 0.6 mg tablet 0.6 mg PO DAILY 03/26/25 escitalopram oxalate 5 mg tablet 5 mg PO PRN PRN 03/26 Current Visit Medications: Current Medications Generic Name Dose Route Start Last Admin Trade Name Freq PRN Reason Stop Dose Admin Allopurinol 300 mg 03/27/25 08:30 03/27/25 09:03 Allopurinol 300 Mg Tab PO Not Given DAILY CHOCO Vancomycin/PEG/NADA/Lysine/Water 2 gm in 400 mls @ 200 mls/hr 03/27/25 18:00 Vancocin Injection IVPB Q12H CHOCO Morphine Sulfate 2 mg 03/26/25 22:19 03/27/25 08:27 Morphine 2 Mg/Ml Syr IVP 2 mg Q2H PRN PRN Administration Pt's Own 1 each 03/27/25 08:30 03/27/25 11:47 Escitalopram Oxalate PO Not Given 5 Mg Tablet DAILY CHOCO Pt's Own 1 each 03/27/25 08:30 03/27/25 11:47 Escitalopram Oxalate PO Not Given 10mg Tablet DAILY CHOCO Sodium Chloride 0 ml 03/27/25 08:21 03/27/25 08:27 Normal Saline Flush 10 Ml Syr IVP 20 ml PRN PRN Administration PFSH Active Problems Active Problems: Problem Status Onset Code Severe obesity (BMI >= 40) Acute E66.01 Major depression, recurrent, chronic Acute F33.9 Elevated blood pressure reading without diagnosis of hypertension Acute R03.0 Tophus Acute M1A.9XX1 Abscess of foot Acute L02.619 Pain in left foot Acute M79.672 Cellulitis Acute L03.90 Gout Chronic M10.9 History of total left knee replacement Acute 0607 Z96.652 Gout Chronic M10.9 Hypertensive disorder Chronic I10 Medical History Medical History Unilateral inguinal hernia, without obstruction or gangrene, not specified as recurrent Panic disorder without agoraphobia Secondary polycythemia Pt. unsure of this Medical History Comments:: Pt. states he has anxiety provoked diarrhea. Surgical History Surgical History History of urinary tract surgery Hx of appendectomy Hx of knee surgery x3 Hx of inguinal hernia repair Tobacco Smoking/Tobacco Use Status: Former Tobacco Use Smokeless tobacco user: chewing tobacco Alcohol Alcohol Intake: former Substance Use Substance use: Daily Substance use type: marijuana Details: last used 2 weeks ago. Vital Signs and Lab Results Vital Signs Most Recent Vital Signs in EMR: Most Recent Vital Signs Temp Pulse Resp BP Pulse Ox 35.7 C L 63 14 150/91 H 96 03/27/25 07:14 03/27/25 07:14 03/27/25 07:14 03/27/25 07:14 03/27/25 07:14 Lab Results 03/26/25 17:34 03/26/25 17:34 Complete Blood Count: 2 WBC, (4.4-10.8) 8.66 10^3/uL 03/26/25, 17:34 RBC, (4.36-5.78) 5.13 10^6/uL 03/26/25, 17:34 Hgb, (13.5-17.5) 15.4 g/dL 03/26/25, 17:34 Hct, (40.0-50.0) 44.0 % 03/26/25, 17:34 Plt Count, (130-400) 305 10^3/uL 03/26/25, 17:34 VBG Lactate, (<or=2.0) 0.9 mmol/L 03/26/25, 17:34 Complete Metabolic Panel: 2 Sodium, (136-145) 138 mmol/L 03/26/25, 17:34 Potassium, (3.5-5.1) 3.7 mmol/L 03/26/25, 17:34 Chloride, (98-107) 102 mmol/L 03/26/25, 17:34 Carbon Dioxide, (21.0-32.0) 25.9 mmol/L 03/26/25, 17 :34 BUN, (7-18) 14 mg/dL 03/26/25, 17:34 Creatinine, (0.70-1.30) 0.8 mg/dL 03/26/25, 17:34 Est GFR (CKD-EPI 2020), (mL/min/1.73m2) 111.92 03/26/25, 17:34 Magnesium, (1.8-2.4) 1.9 mg/dL 03/26/25, 17:34 Calcium, (8.5-10.1) 9.4 mg/dL 03/26/25, 17:34 Albumin, (3.4-5.0) 4.4 g/dL 03/26/25, 17:34 Glucose, (74-106) 97 mg/dL 03/26/25, 17:34 C-Reactive Protein, (<or=0.5) 0.94 mg/dL H 03/26/25, 17:34 Liver Function Panel: 2 ALT, (16-63) 32 U/L 03/26/25, 17:34 AST, (15-37) 19 U/L 03/26/25, 17:34 Coagulation Panel: 2 INR, (0.9-1.1) 1.0 Today, 07:30 PT, (9.1-11.1) 10.2 sec Today, 07:30 Cardiac Panel: 2 Troponin I, (<or=76) 4 ng/L 03/26/25 Imaging and Studies Imaging and Studies Study information below may be from another EMR and interpreted by another provider. Please see original notes in EMR for more complete details. EKG Summary: EKG PATIENT NAME: Adelfo Garay UNIT #: [id number] ORDERING PROVIDER: Lisa Flores M.D. PRIMARY CARE PROVIDER: Francisco Linda DO DATE/TIME OF SERVICE: 03/26/25 1648 : 1980 PERFORMING LOCATION: ER APPROVED REPORT Exam: Resting ECG Reason for Exam: OR Clearence Patient Location: E HR:80 bpm ECG Measurements Heart Rate 80 AXIS ME 164 P 24 QRSd 110 QRS -8 QT 377 T43 QTc 436 Conclusion Sinus rhythm...normal P axis, V-rate 60- 99 Sinus Rhythm. No prior. WD - <Electronically signed by LISA FLORES MD in OV> E-Sign Date: 03/26/25 E-Sign Time: 3968 Anesthesia Assessment and Plan Anesthesia History Personal History: PONV Family History: No Family History of Anesthesia Complications Exercise Tolerance Exercise Tolerance: Metabolic Equivalents>4 Pertinent Negatives Pertinent Negatives: No Symptoms of GERD, No Major Cardiovascular Symptoms or Complaints, No Major Pulmonary Symptoms or Complaints and No History of CVA/TIA Cardiac & Pulmonary Exam Cardiac Exam: Normal S1/S2 Heart Sounds Pulmonary Exam: Clear Bilateral Breath Sounds Implantable Cardiac Device Does patient have a Pacemaker or an ICD?: No Airway Exam Known Difficult Airway: No Mallampati Class: 2 Mouth Opening: Normal (> 3cm) Thyromental Distance: Greater than 3 cm Neck Range of Motion: Full ROM Neck Circumference: Normal Teeth Condition: Normal Dentition ASA Classification ASA Score: ASA 3 Emergency Case?: Yes NPO Status NPO Status: NPO Clears >2 hours, Solids >8 hours Anesthesia Plan Resuscitation Status: Full Code Anesthesia Technique: Spinal Anesthesia Airway Planned: Natural Airway Pain Management: Surgeon and patient request nerve block Monitors Used: Standard Monitors Preoperative Comments:: 41 yo male for left great to I&D Sig PMHx: former tobacco, HTN (not on medication), occ EtOH, daily cannabis. PONV at 10 yo, difficulty with spinal last surgery
[2025-03-27] MEDS: Lactated Ringers 1,000 ML 30 ML IV (12:40)
[2025-03-27] MEDS: Lidocaine 1% Pres-Free 30 ML VIAL (13:12)
--- NOTE | 2025-03-27 13:20 | BONE_PTH ---
PATIENT: Adelfo Garay LOC: U#:[id number] AGE/SX: 44/M ROOM: 205 RE03/26/[address]: Gurpreet Vidal : 1980 BED: A DIS: 03/27/2025 SPEC #: [id number] RECD: 03/27/25 16:57 STATUS: MARY REQ #: [id number] ABELARDO: 03/27/25 13:[address]: Gurpreet Vidal DEPT: Surgical Specimen RECD BY: Mariposa Cox ENTERED: 03/27/25 16:58 SP TYPE: Bone OTHR DR: Chilango Guido Tissues: 1 - BONE BX/CURRETTE NOT PATH FRACTURE 2 - BONE BX/CURRETTE NOT PATH FRACTURE Procedures: GROSS AND MICRO LEVEL 5 Comments: [id number] (BOTH SAMPLES SUBMITTED IN 100% ETHANOL)
--- NOTE | 2025-03-27 13:33 | PHACLINREV_ITS ---
Pharmacy Admission Review Admission Clinical Review Admission Pharmacy Review: Severe obesity (BMI >= 40) (Acute) Major depression, recurrent, chronic (Acute) Elevated blood pressure reading without diagnosis of hypertension (Acute) Tophus (Acute) Abscess of foot (Acute) Pain in left foot (Acute) Cellulitis (Acute) No Known Allergies Allergy (Verified 03/26/25 16:49) Resuscitation Status Full Code Height 5 ft 10 in Weight 147.162 kg Pharmacy Admission Review Renal Dosing Renal Dosing: BUN 14 mg/dL (7-18) 03/26/25 17:34 Creatinine 0.8 mg/dL (0.70-1.30) 03/26/25 17:34 Medications needing adjustments: Reviewed (CrCl 171.11 mL/min) List of meds needing interventions: Current medications are okay Anticoagulation Anticoagulation: Hgb 15.4 g/dL (13.5-17.5) 03/26/25 17:34 Hct 44.0 % (40.0-50.0) 03/26/25 17:34 Plt Count 305 10^3/uL (130-400) 03/26/25 17:34 INR 1.0 (0.9-1.1) 03/27/25 07:30 Creatinine 0.8 mg/dL (0.70-1.30) 03/26/25 17:34 DVT Prophylaxis: Reviewed (none at this time, OR today) Opiate Usage Evaluate Pain Scale/Pains Meds: Reviewed (morphine 2mg IVP q2h PRN - 6mg/24hrs) Scheduled Bowel Reg ordered if on Opiates?: No Relevant Labs Relevant Labs: ESR 20 mm/hr (0-15) H 03/26/25 17:34 Sodium 138 mmol/L (136-145) 03/26/25 17:34 Potassium 3.7 mmol/L (3.5-5.1) 03/26/25 17:34 Chloride 102 mmol/L (98-107) 03/26/25 17:34 Magnesium 1.9 mg/dL (1.8-2.4) 03/26/25 17:34 C-Reactive Protein 0.94 mg/dL (<or=0.5) H 03/26/25 17:34 Electrolytes, C-Reactive P, ESR: Reviewed (no new labs for today) Cardiac Review Cardiac Review: Troponin I Cancelled 03/26/25 19:55 BP, HR, EF%: Reviewed (BP 150/91, HR WNL) QTc Review QTc: Reviewed (436 from 03/26) IV to PO Switch IV Medications: Reviewed (vancomycin and morphine) Home Meds Home Med List reviewed: Intervened Relevent Home Meds Not ordered & why?: acetaminophen (PRN) and colchicine Reached out to provider regarding colchicine. Per provider will resume. Current Meds Current Medication Order Review: Intervened Comments: Added IV admission order Pharmacy Antibiotic Review Relevant Labs: Relevant Labs 03/26/25 17:34 C-Reactive Protein 0.94 H WBC 8.66 10^3/uL (4.4-10.8) 03/26/25 17:34 Temperature 35.7 C Pharmacy Antibiotic Activity: C/S review and Reviewed, no change Comments: Patient is on vancomycin 2g q12h, day 1, for cellulitis. Vancomycin l evel from this morning at 0500 was 9.2. Continue with current dose for predicated trough of 10mg/L. Repeat dose once at steady state if planned treatment for more than 3 days. Blood culture and wound culture pending.
--- NOTE | 2025-03-27 13:38 | ROE_ITS ---
Operative Note Operative Note PRE-OP DIAGNOSIS: Abscess/cellulitis/gout left hallux POST-OP DIAGNOSIS: same PROCEDURE: Incision and drainage and biopsy of left hallux SURGEON: Leanna Eid ANESTHESIA TYPE: Local By Surgeon (20 mL 1% lidocaine plain preop) Refer to Anesthesia Record ESTIMATED BLOOD LOSS: 0 PATHOLOGY: other (Bone, proximal and distal phalanx, left hallux) TOURNIQUET TIME: 20 COMPLICATIONS: None Patient was transported to: PACU Patient's condition: stable Indications: 44-year-old male patient with recurrent gout. He was seen in office for red, hot, swollen and painful left hallux. In office I&D performed, purulence was expressed yesterday along with tophaceous gout. In OR I&D was deemed necessary due to the level of involvement. Discussed the procedure in detail with the p atient. I discussed benefits of I&D with the patient. I did also recommend a biopsy of the hallux IPJ due to concern for osteomyelitis as noted on x-ray. Patient consented to the procedure. I reviewed the risks, benefits and possible complications in detail with the patient. No guarantees or warranties were made or implied. 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 Site was marked. Consent form signed reviewed in chart. Patient was then brought to the operating room placed on the operating table in supine position with the anesthesia team. After induction of anesthesia, a left hallux block was performed using 20 mL of 1% lidocaine plain preoperatively. An ankle tourniquet was applied. The left lower extremity was then scrubbed, prepped and draped in the usual aseptic manner. The left lower extremity then exsanguinated using an Esmarch. The tourniquet was then inflated to 250 mmHg. A boggy area was noted to the dorsal medial aspect of the left hallux a 3 cm linear longitudinal incision was made directly overlying this area with a sterile #15 blade this was carried full-thickness to the level of bone and tophaceous gouty material was immediately expressed. No evidence for purulence no soft tissue necrosis however significant edema noted to the soft tissue. The joint was explored as well and tophaceous material was expressed there as well. Next, a biopsy trocar was used to obtain a biopsy specimen from the head of the proximal phalanx and base of the distal phalanx. This was passed from the operative field to be sent to pathology and microbiology. The joint and incision site were then irrigated with pulse lavaged with sterile saline. No further purulence or tophi were noted. Incision site was then reapproximated using 3-0 nylon. The tourniquet was then deflated. Dressings were then applied with Xeroform gauze, 4 x 4, Kerlix and Jake wrap. Patient tolerated the procedure and anesthesia well with vital signs stable and vascular status intact to the left foot. Patient was transferred to PACU for further monitoring. He will be transferred to the floor when stable. Date of Procedure: 03/27/25
--- NOTE | 2025-03-27 13:59 | W.ANESPOSTOP ---
Postoperative Evaluation Date, Time and Location Date Performed: 03/27/25 Time Performed: 13:59 Patient Location: Day Surgery Unit Vital Signs Most Recent Imported Vital Signs: Most Recent Vital Signs Temp Pulse Resp BP Pulse Ox 37.1 C 77 20 115/91 H 95 03/27/25 13:46 03/27/25 13:46 03/27/25 13:46 03/27/25 13:46 03/27/25 13:46 Pain Score Most Recent Pain Score: Most Recent Pain Score Pain Level [Left Foot] 6 03/27/25 07:45 Pain Level 0 03/27/25 13:47 Assessment Mental Status: Awake (Alert & Oriented to Patient Baseline) Airway and Respiratory Function: Patent airway with normal (patient baseline) respiratory exam Cardiovascular Function: Hemodynamically Stable Hydration Status: Adequately Hydrated Nausea & Vomiting: No Nausea or Vomiting Pain: Pain is tolerable per patient Peripheral Nerve Block: Other (Local by Dr. Eid)
[2025-03-27] MEDS: fentaNYL 100 MCG/2 ML VIAL IVP ×2 (14:05→14:13)
--- NOTE | 2025-03-27 15:54 | DSE_ITS ---
Date of service: 03/27/25 Time of Service: 15:54 DS: Diagnosis Discharge Diagnosis (1) Abscess of foot: Status: Acute (2) Tophus: Status: Acute (3) Pain in left foot: Status: Acute (4) Cellulitis: Status: Acute (5) Gout: Status: Chronic Discharge Plan Disposition Patient Disposition: Home Condition: Improving Discharge Details Reason For Visit: cellulitis Admit Date/Time: 03/26/25 20:03 Admit Provider: Gurpreet Vidal Attending Provider: Gurpreet Vidal Primary Care Provider: Francisco Linda [facility] Course Hospital Course: Hospital Course: Mr. Garay is a 44-year-old male admitted for further management of a painful, erythematous, and swollen left hallux. Initial in-office I&D revealed purulent drainage and suspected tophaceous gout. Due to concern for deeper infection and potential osteomyelitis, the patient was taken to the operating room for formal incision and drainage and biopsy of the hallux interphalangeal joint. Intraoperative findings included tophaceous gout material but no viv purulence or necrotic tissue. Biopsy specimens from the proximal and distal phalanges were obtained and sent for pathology and microbiology. The procedure was well tolerated without complications. Postoperatively, the patient's vital signs remained stable, and vascular integrity of the foot was preserved. Pain was well-controlled, and there were no signs of systemic infection. Podiatry standpoint, the patient is stable and cleared for discharge. Continue doxycycline; percocet for pain. Condition at Discharge: Stable Home Meds and New Rx's Prescriptions: Continued oxycodone-acetaminophen [Percocet] 7.5-325 mg tablet 1 tab PO Q8H MDD 3 tabs 3 Days Qty: 9 0RF acetaminophen 500 mg capsule 1,000 mg PO Q8H PRN PRNQty: 90 0RF colchicine 0.6 mg tablet 0.6 mg PO DAILY Patient Comments: TAKE ONE TABLET BY MOUTH EVERY DAY UNTIL GOUT FLARE IS IMPROVED allopurinol 300 mg tablet 300 mg PO DAILY Patient Comments: TAKE ONE TABLET BY MOUTH EVERY DAY doxycycline hyclate 100 mg capsule Patient Comments: TAKE ONE CAPSULE BY MOUTH TWICE A DAY FOR 7 DAYS Changed escitalopram oxalate 10 mg tablet 15 mg PO DAILY Qty: 0 0RF Patient Comments: TAKE ONE TABLET BY MOUTH EVERY DAY WITH 5MG TABLET FOR TOTAL DAILY DOSE OF 15 MG Discontinued escitalopram oxalate 5 mg tablet 5 mg PO PRN PRN Patient Comments: TAKE ONE TABLET BY MOUTH EVERY DAY NEEDED FOR ANXIETY Discharge Instructions Instructions: Gout, Doxycycline, Oxycodone and Acetaminophen Additional Instructions: Wound Care: * Leave the surgical dressing intact until your follow-up appointment. * Keep the dressing and foot dry at all times. * Dressing change to be performed at follow-up visit. Activity / Mobility: * Keep the left foot elevated at all times when resting. * Rest, ice, and elevate the foot as needed to reduce swelling. * A surgical shoe is recommended for protected weightbearing on the left foot. Crutches. * Avoid strenuous activity or unnecessary walking. Medications: * Continue antibiotics as prescribed. * Continue pain medications as needed. * Continue all home medications unless otherwise directed. Signs to Watch For: * Redness, swelling, increasing pain, warmth, drainage, or fever ? seek medical attention if these occur. Follow-Up: * Podiatry: Follow up in clinic within 1 week * Wound check, dressing change, and review of pathology/micro results at that time. Referrals: Francisco Linda DO [Primary Care Provider, Medicine] Referral Note: 1 week post hospitalization Leanna Eid DPM [[facility] ST[facility]FF PHYSICIAN, Podiatry] Referral Note: 1 week Activity:: per above Equipment/Supplies:: No Equipment Needed Diet:: As Tolerated Discharge Orders Discharge Orders: Discharge Order (Routine); Ordered 03/27/25 Ordered By: Rosenda Caban DS: Summary Time Spent with Patient providing and/or coordinating discharge services: Greater than 30 minutes Status at Discharge Functional status at discharge: independent ambulation Overall status at discharge: patient is progressing back to baseline Mental Status: mental status grossly normal Speech and Movement: speech and movement normal Mood: congruent mood Affect: normal affect Quality:SDOH Health Related Social Needs: Health related social needs education Health related social needs details More knowledge abo ut how his left toe be okay and wont get worse of its infection. Health related social needs details: More knowledge about how his left toe be okay and wont get worse of its infection. Exam Narrative Exam Narrative: * HEENT: Normocephalic, atraumatic * Cardiovascular: Regular rate and rhythm * Respiratory: Clear to auscultation bilaterally * Abdomen: Soft, obese, non-tender, non-distended, positive bowel sounds * Musculoskeletal: Left foot dressed, appropriately tender. Voluntary motion in all four extremities. * Neurological: Awake, alert, no focal deficits Psych Mental Status: mental status grossly normal Speech and Movement: speech and movement normal Mood: congruent mood Affect: normal affect DS: Data Vitals/I&O Vitals and I&O: Vital Signs Temperature 36.9 C 03/27/25 15:00 Temperature Source Temporal Artery Scan 03/27/25 15:00 Pulse 59 L 03/27/25 15:00 Pulse 68 03/27/25 14:36 Respiratory Rate 14 03/27/25 15:00 Respiratory Effort Normal 03/26/25 21:54 Respiratory Depth Normal 03/26/25 21:54 Respiratory Pattern Normal 03/26/25 21:54 Blood Pressure 121/83 03/27/25 15:00 Blood Pressure Mean 95 03/27/25 15:00 Blood Pressure Position Sitting 03/26/25 17:40 Pulse Oximetry 97 03/27/25 15:00 Respiratory End-tidal CO2 48 03/27/25 14:35 Oxygen Delivery Method Room Air 03/27/25 15:00 Oxygen Flow Rate 0 03/27/25 15:00 Pain Level 5 03/27/25 15:00 Intake & Output 03/26/25 03/27/25 03/27/25 23:59 11:59 23:59 Intake Total 600 / 600 1000 / 1450 450 / 1450 Balance 600 / 600 1000 / 1450 450 / 1450 Weight 136.078 kg 147.162 kg 147.162 kg Intake: IV 600 / 600 1000 / 1450 450 / 1450 Other: Urine Color Yellow Yellow Urine Appearance Clear Urine Odor None Normal Comment pt self reported Emesis Description None Data Completed and Pending Labs on day of discharge: Labs from last 24 hours 03/27/25 03/27/25 03/26/25 07:30 05:00 19:55 WBC RBC Hgb Hct MCV MCH MCHC RDW Plt Count MPV Immature Gran % Neutrophils % Lymphocytes % Monocytes % Eosinophils % Basophils % Nucleated RBC % Absolute Neutrophils Absolute Lymphocytes Absolute Monocytes Absolute Eosinophils Absolute Basophils ESR PT 10.2 INR 1.0 VBG Lactate Sodium Potassium Chloride Carbon Dioxide Anion Gap BUN Creatinine Est GFR (CKD-EPI 2020) Glucose Uric Acid 4.5 Calcium Magnesium Total Bilirubin AST ALT Alkaline Phosphatase Troponin I Cancelled C-Reactive Protein Total Protein Albumin Urine Color Urine Clarity Urine pH Ur Specific Orange Urine Protein Urine Ketones Urine Blood Urine Nitrite Urine Bilirubin Urine Urobilinogen Ur Leukocyte Esterase Urine Glucose Random Vancomycin 9.2 03/26/25 03/26/25 03/26/25 19:06 17:47 17:34 WBC 8.66 RBC 5.13 Hgb 15.4 Hct 44.0 MCV 86 MCH 30.0 MCHC 35.0 RDW 11.7 L Plt Count 305 MPV 11.0 Immature Gran % 0.6 Neutrophils % 62.5 Lymphocytes % 25.1 Monocytes % 8.2 Eosinophils % 2.7 Basophils % 0.9 Nucleated RBC % 0.0 Absolute Neutrophils 5.42 Absolute Lymphocytes 2.17 Absolute Monocytes 0.71 Absolute Eosinophils 0.23 Absolute Basophils 0.08 ESR 20 H PT INR VBG Lactate 0.9 Sodium 138 Potassium 3.7 Chloride 102 Carbon Dioxide 25.9 Anion Gap 10.1 BUN 14 Creatinine 0.8 Est GFR (CKD-EPI 2020) 111.92 Glucose 97 Uric Acid 6.2 Calcium 9.4 Magnesium 1.9 Total Bilirubin 0.7 AST 19 ALT 32 Alkaline Phosphatase 74 Troponin I 4 4 C-Reactive Protein 0.94 H Total Protein 8.0 Albumin 4.4 Urine Color Yellow Urine Clarity Clear Urine pH 6.0 Ur Specific Orange 1.015 Urine Protein Negative Urine Ketones Negative Urine Blood Negative Urine Nitrite Negative Urine Bilirubin Negative Urine Urobilinogen 0.2 Ur Leukocyte Esterase Negative Urine Glucose Negative Random Vancomycin 03/27/25 13:22 Toe - Left Big Toe Wound Culture - Pending 03/27/25 13:20 Toe - Left Big Toe Wound Culture - Pending 03/27/25 13:22 Toe - Left Big Toe Anaerobic Culture - Pending 03/27/25 13:20 Toe - Left Big Toe Anaerobic Culture - Pending 03/26/25 18:30 Blood Blood Culture - Pending 03/26/25 17:34 Blood Blood Culture - Pending Preliminary micro results at discharge 03/27/25 13:22 Toe - Left Big Toe Wound Culture - Pending 03/27/25 13:20 Toe - Left Big Toe Wound Culture - Pending 03/27/25 13:22 Toe - Left Big Toe Anaerobic Culture - Pending 03/27/25 13:20 Toe - Left Big Toe Anaerobic Culture - Pending 03/26/25 18:30 Blood Blood Culture - Pending 03/26/25 17:34 Blood Blood Culture - Pending [facility] All Active Problems (Updated 03/27/25 @ 16:05 by Leanna Eid DPM) Postoperative pain of extremity (Acute) Severe obesity (BMI >= 40) (Acute) Major depression, recurrent, chronic (Acute) Elevated blood pressure reading without diagnosis of hypertension (Acute) Tophus (Acute) Abscess of foot (Acute) Pain in left foot (Acute) Cellulitis (Acute) Gout (Chronic) History of total left knee replacement (Acute 02/02/22) Gout (Chronic) Hypertensive disorder (Chronic) Medical History Unilateral inguinal hernia, without obstruction or gangrene, not specified as recurrent Panic disorder without agoraphobia Secondary polycythemia Pt. unsure of this Surgical History History of urinary tract surgery Hx of appendectomy Hx of knee surgery x3 Hx of inguinal hernia repair Social History Smoking/Tobacco Use Status: Former Tobacco Use tobacco type: smokeless tobacco Quit Date: 08/30/15 Smokeless tobacco user: chewing tobacco Smoking risk assessment performed?: Yes Alcohol Intake: former Drug use: Daily Substance use type: marijuana Details: last used 2 weeks ago. Housing: house Do you feel safe at home: Yes Do you feel safe in your relationship?: Yes Time Spent with Patient Time Spent with Patient: 45-69 minutes Time was spent: preparing to see the patient(eg.review tests), referring, communicating with other health pharmacy care coordinator, counseling the patient and care coordination
--- NOTE | 2025-03-27 16:37 | CMDISCH_ITS ---
Date of service: 03/27/25 Time of Service: 16:37 LACE Index Scoring Tool Questions: Length of Stay (in days): 1 Was the patient admitted via the E.D.?: Yes E.D. Visits: 1 Answers: Total Score: 5 Risk of Readmission: Low Risk Care Management Discharge Plan Reason for Hospitalization: Cellulitis Discharge Plan: Adelfo will be discharged home with crutches and will see outpatient PT. He will follow up with his community providers, surgical team, and plan of care. He will transport via private vehicle by family. Patient/Family Education Needs: Review of discharge instructions, activity, limitation, and plan of care. Discuss ask me three. SDOH Health Related Social Needs: Health related social needs education Health related social needs details More knowledge abo ut how his left toe be okay and wont get worse of its infection. Health related social needs details: More knowledge about how his left toe be okay and wont get worse of its infection.
--- NOTE | 2025-03-27 16:46 | PT.INIE ---
PT Notes Visit Reasons: cellulitis Physical Therapy Inpatient Initial Evaluation Date: 03/27/2025 Referring Doctor: Gurpreet Vidal MD PT Orders: PT CONSULT: post op eval please Precautions: Fall. Standard. Activity as tolerated. Patient Profile/Admitting Diagnosis: Adelfo is a 44-year-old male patient admitted to the Ed on 03/26/2025 with L foot abcess, cellulitis, and L hallux gout and is S/P I and D as well as biposy of L hallux on POD 1. PMHX: All Active Problems (Updated 03/27/25 @ 04:12 by Gurpreet Vidal MD) Severe obesity (BMI >= 40) (Acute) Major depression, recurrent, chronic (Acute) Elevated blood pressure reading without diagnosis of hypertension (Acute) Tophus (Acute) Abscess of foot (Acute) Pain in left foot (Acute) Cellulitis (Acute) Gout (Chronic) History of total left knee replacement (Acute 02/02/22) Gout (Chronic) Hypertensive disorder (Chronic) Medical History Unilateral inguinal hernia, without obstruction or gangrene, not specified as recurrent Panic disorder without agoraphobia Secondary polycythemia Pt. unsure of this Surgical History History of urinary tract surgery Hx of appendectomy Hx of knee surgery x3 Hx of inguinal hernia repair Social History/Home Situation: Lives with in a private home. Independent with all aspects of ADLs prior to surgery. Equipment Owned/DME: [facility] Subjective: What time could I go home? Wanted to know what was taking long and he understood that some medication adjustment needed to be done. Objective: General Observation: Resting in bed. Surgical dressing to L foot elevated on a pillow. Mental Status: Alert and oriented as to person, place, time, and purpose. Able to pay attention, focus, and respond appropriately. Pain: 4-5/10 at rest, 7/10 with WB Vital Signs: Closely monitored by nursing staff ROM: Left Lower Extremity: Hip flexion WFL. Hip abduction WFL. Knee flexion WFL. Ankle dorsiflexion NTL. Ankle plantarflexion NT. Strength: Left Lower Extremity: Hip flexors 5/5. Hip abductors 5/5. Knee flexors 4/5. Knee extensors 4/5. Ankle dorsiflexors NT. Ankle plantarflexors NT. Bed Mobility/Transfers: Independent Gait: Navigated 30 feet using bilateral axillary crutches with independence, distance limited primarily due to pain level going up to 7/10 in the L foot. No LOB. Balance: Static Sitting: Normal Dynamic Sitting: Normal Static Standing: Fair Dynamic Standing: Poor Special Tests: Mobility Limitations Standardized Measure [facility] AM-PAC 6 clicks Basic Mobility Inpatient Short Form: Raw Score: 23 CMS Score: 11% deficit Informed Consent/Education: Patient was instructed in purpose of PT consult. Assessment: Today fitted and provided bilateral axillary crutches for safe indoor and outdoor ambulation per podiatry recommendation. Emphasized using a foot wear on the R side tall enough to ensure no leg length discrepancy to prevent pain and muscle imbalance in B LE. Patient to use bilateral axillary crutches for all mobility AD performance to ensure recommended WB. Patient presents with clinical signs and symptoms consistent with current/admitting diagnoses that have resulted to mobility limitations, gait instability, generalized weakness, and overall ADL decline as demonstrated by the following impairment level findings: 1. Decreased strength to L ankle major muscle groups 2. Impaired standing balance 3. Pain in L foot up to 7/10 with protected weight bearing and with post op shoe Impairments are contributing to the following functional limitations: 1. Increased completion time for mobility ADL performance 2. Increased risk infection recurrence Patient is assessed as a 92412 low complexity based on the following: History:44 -year-old male with past medical history as indicated above Examination: As abbove Presentation: Stable Decision Makin low complexity Goals: N/A. PT evaluation and tx session only for functional mobility training. Plan of Care/Treatment Plan: N/A. PT evaluation and tx session only for functional mobility training. DISCHARGE RECOMMENDATIONS: OP PT for gait training and progression without AD. TREATMENT CODE/TIME: 15279 x 20 minutes for 1 unit, 44439 x 10 minutes for 1 unit (16:46-17:16). Thank you for the opportunity to participate in the care of this patient. Loni Prado PT, DPT, CLT [facility] [place], [place]
== END 2025-03-27 18:10 | disposition home or self-care (01) ==
LOC: ER 20:35 → MS 21:36
PROVIDERS: Podiatrist; Admitting Provider Family Medicine; Emergency Provider Emergency Medicine Emergency Medical Services; PCP Specialist/Technologist Athletic Trainer; Responsible Provider Nurse Practitioner Acute Care; Visit Provider Family Medicine
PROC: (CPT 20220; principal; 2025-03-27 12:00)
DX: M1A.0721 Idiopathic chronic gout, left ankle and foot, with tophus (tophi) (principal); L02.612 Cutaneous abscess of left foot; E66.01 Morbid (severe) obesity due to excess calories; M79.672 Pain in left foot; L03.116 Cellulitis of left lower limb; G89.18 Other acute postprocedural pain; F33.9 Major depressive disorder, recurrent, unspecified; Z96.652 Presence of left artificial knee joint; I10 Essential (primary) hypertension; F41.0 Panic disorder [episodic paroxysmal anxiety]; Z79.899 Other long term (current) drug therapy; Z87.891 Personal history of nicotine dependence; Z68.42 Body mass index [BMI] 45.0-49.9, adult
CPT/HCPCS: 20220; 10060; 00123; 36415; 80053; 85652; 87040; 93005; 96365; 96366; 96367; 96375; 96376; 97161; 97530; 99285; 73630; 80202; 81003; 83605; 83735; 84484; 84550; 85025; 85610; 86140; 87070; 87075; 87205; 88304; 88307; 93010; 99222; 99239; G0378; J0696; J2250; J2270; J2405; J2704; J3010; J3373

== ENCOUNTER 2025-04-11 11:53 | Outpatient (CLI) | payer OTHER, SELFPAY ==
[2025-04-11 11:43] LABS: Abs Immature Grans 0.04 10^3/uL (0.0-0.06); ESR 11 mm/hr (0-15); HCT 43.6 % (40.0-50.0); HGB 15.1 g/dL (13.5-17.5); Immature Grans % 0.6 %; MCH 29.7 pg (27.0-33.0); MCHC 34.6 % (32.0-36.0); MCV 86 fL (80-95); MPV 10.4 fL (8.0-11.0); Platelet Count 289 10^3/uL (130-400); RBC 5.09 10^6/uL (4.36-5.78); RDW 11.6 % (11.8-14.1); RDW-SD 36.0 fL; WBC 6.71 10^3/uL (4.4-10.8)
[2025-04-11 12:15] LABS: Hemoglobin A1C 5.2 % (<5.7)
[2025-04-11 12:18] LABS: C-Reactive Protein < 0.50 mg/dL (<or=0.5)
== END 2025-04-11 11:54 | disposition home or self-care (01) ==
LOC: LBO 11:54
PROVIDERS: PCP Specialist/Technologist Athletic Trainer; Visit Provider Podiatrist
DX: M86.9 Osteomyelitis, unspecified; L97.522 Non-pressure chronic ulcer of other part of left foot with fat layer exposed
CPT/HCPCS: 36415; 85652; 83036; 85025; 86140; 87075

== ENCOUNTER 2025-04-11 15:39 | Outpatient (CLI) | payer OTHER, SELFPAY ==
--- NOTE | 2025-04-11 10:15 | DI.RAD_ITS ---
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 TECHNIQUE: 2D digital imaging was performed. Three views. COMPARISON: CR XR FOOT LT COMPLETE from 03/26/2025 FINDINGS: BONES: No acute fracture is present. The previously noted lucencies in the base of the distal phalanx and distal aspect of the proximal phalanx appear less prominent which could indicate some interval healing. JOINTS: No dislocation present. There has been some interval improvement of the previously noted widening at the interphalangeal joints of the thumb. There is mild widening which remains present. SOFT TISSUE: Soft tissue swelling is present at the lateral aspect of the interphalangeal joint of the great toe which appears have improved when compared the previous exam. IMPRESSION: Improvement in widening of the interphalangeal joint and soft tissue swelling. Improvement appearance bony lucencies. DATA REPOSITORY: RADIATION DOSE DELIVERED:
== END 2025-04-11 15:59 ==
LOC: DI 15:40
PROVIDERS: PCP Specialist/Technologist Athletic Trainer; Visit Provider Podiatrist
DX: M86.9 Osteomyelitis, unspecified (principal)
CPT/HCPCS: 73660